=== PATIENT | female | born 1980 | race Caucasian/White ===

== ENCOUNTER 2019-01-02 16:17 | Inpatient (IN) | payer OTHER ==
[~2019-01-02] VITALS: Ht 165.1 cm; Wt 244.5 kg
[2019-01-02 16:18] VITALS: BP 123/61
[2019-01-02] MEDS ORDERED: WELCHOL 625 MG625 MG PO (16:23)
[2019-01-02 16:58] LABS: ABSOLUTE NEUTROPHILS 8.9 thou/uL (1.4-8.2); BASOPHILS 0.5 % (0.0-2.0); EOSINOPHILS 2.2 % (0.0-3.0); HEMATOCRIT 39.1 % (37.0-47.0); HEMOGLOBIN 12.5 gm/dL (12.0-15.0); LYMPHOCYTES 13.6 % (24.0-44.0); MCH 26.5 pg (26.0-34.0); MCV 82.9 fL (80.0-100.0); MONOCYTES 3.1 % (1.0-8.0); PLATELET COUNT 301 thou/uL (150-400); POLYS 80.6 % (36.0-66.0); RBC 4.72 mil/uL (4.20-5.00); RDW 15.2 % (10.5-14.5); WBC 11.1 thou/uL (4.0-11.0)
[2019-01-02 17:13] LABS: CALCIUM 9.2 mg/dL (8.5-10.1); CREATININE 0.9 mg/dL (0.6-1.0); MAGNESIUM 1.8 mg/dL (1.8-2.4); POTASSIUM 3.4 mmol/L (3.5-5.1)
[2019-01-02 20:34] LABS: ICTOTEST (BILI CONFIRMATORY) Negative (Negative); URINE BILIRUBIN NEGATIVE (Negative); URINE BLOOD TRACE (Negative); URINE CLARITY CLEAR; URINE COLOR YELLOW; URINE GLUCOSE-RANDOM* NEGATIVE (Negative); URINE KETONES NEGATIVE (Negative); URINE LEUKOCYTES-REFLEX 2+ (Negative); URINE NITRITE-REFLEX NEGATIVE (Negative); URINE PROTEIN (DIPSTICK) NEGATIVE (Negative); URINE UROBILINOGEN 0.2 E.U./dl (0.2-1.0)
[2019-01-02 20:46] LABS: CASTS None Seen /LPF (None Seen); CRYSTALS None Seen /LPF (None Seen); SQUAMOUS 4-10 Moderate /LPF (0-3)
[2019-01-02 20:47] LABS: BACTERIA-REFLEX 1-9 Few /HPF (None Seen); URINE RBC 0-2 Rare /HPF (0-2)
[2019-01-02 21:01] LABS: AMP/METHAMP Negative (Negative); BARBITURATES Negative (Negative); BENZODIAZEPINES Negative (Negative); COCAINE Negative (Negative); METHADONE Negative (Negative); OPIATES Negative (Negative); PCP Negative (Negative)
[2019-01-02 21:23] VITALS: BP 123/61
[2019-01-02 23:18] VITALS: BP 110/64
--- NOTE | 2019-01-02 23:36 | NUR ---
SPENT TWO AND HALF HOURS CLEANING PT AND ALL HER FOLDS, APPLYING NYSTATIN, BARRIER CREAM AND INSTA DRY
[2019-01-02 23:39] VITALS: BP 135/72
[2019-01-03 03:00] VITALS: BP 124/74
[2019-01-03 05:27] LABS: HEMATOCRIT 41.6 % (37.0-47.0); MCHC 31.1 g/dL (28.0-37.0); MCV 83.4 fL (80.0-100.0); RBC 4.99 mil/uL (4.20-5.00); RDW 15.4 % (10.5-14.5); WBC 12.1 thou/uL (4.0-11.0)
[2019-01-03 05:30] LABS: CALCIUM 8.7 mg/dL (8.5-10.1); POTASSIUM 3.1 mmol/L (3.5-5.1)
[2019-01-03] MEDS ORDERED: WELCHOL 625 MG625 MG PO (06:08)
--- NOTE | 2019-01-03 06:26 | NUR ---
ADMIT PT ADMITTED WITH SELF CARE DEFICIT, UTI AND MORBID OBESITY. HOME WITH CAREGIVERS. PT IS NOT SATISFIED WITH CARE COMPANY STATED ONE CAREGIVER SHOWED UP DRUNK, AND NONE HAS SHOWN UP TO PROVIDE CARE SINCE THE PREVIOUS SUNDAY. sHE STATED SHE HAS BEEN BED BOUND FOR 2 YEARS AND WAS INCONTINENT OF BOWELAND BLADDER AND HAD BEEN SITTING IN HER OWN EXCREMENT SINCE SUNDAY. VSS, ORIENTED TO ROOM CALL LIGHT AND PLAN OF CARE. PERIAREA RED EXCORIATED WITH 2 SMALL OPEN AREAS NOTED PICTURES TAKEN AND BARRIER CREAM APPLIED. PT IS ON A BARIATRIC LOW AIRLOSS MATTRESS. PT IS ABLE TO ASSIST IN REPOSITIONING SELF BUT UNABLE TO ROOL OVER DUE TO HER GIRTH. SHE RAISED HER LEGS UP OVER HER HEAD IN THE [place]G POSITION TO ALLOW FOR SKIN ASSESSMENT ON HER BUTTOCKS SACRUM AND PERIAREA. REFUSED IV START. CECILIA ALMANZA IN TO EVALUATE PT AND DISCUSS POC. HOME MED LABLED PLACED IN PHARMACY BAG AND SENT TO PHARMACY FOR STORAGE. FEMALE EXTERNAL CATHETER PLACED WORKING VERY WELL.
[2019-01-03 08:03] VITALS: BP 109/63
--- NOTE | 2019-01-03 12:10 | NUR ---
DISCHARGE PLANNING. PATIENT IS READY FOR DISCHARGE TODAY. POST ACUTE RECOMMENDED. PATIENT IS AGREEABLE TO [facility] AT DISCHARGE. HAS BEEN IN THE PAST AND WOULD LIKE TO RETURN. PATIENT REFERRAL FAXED TO [facility]. CALL PLACED TO COLBY TO NOTIFY. COLBY TO REVIEW AND WILL NOTIFY CM. FOLLOWING.
--- NOTE | 2019-01-03 13:46 | NUR ---
PT ADMITTED RELATED TO UTI SELF CARE DEFICIT. CM REVIEWED CHART AND SPOKE WITH CARE TEAM. CM MET WITH PT AT BEDSIDE THIS DAY, NATALEE SCOTT WITH APS VISITED WITH CM AND PT. NATALEE IS WORKING TO ASSIST PT WITH RESOURCES AND SUITABLE DC ARRANGEMENTS. PT INDICATED SHE LIVES ALONE IN AN APARTMENT WITH NO STEPS TO ENTER AND NO STEPS INSIDE WITH HER CAT. CAT IS BEING LOOKED AFTER BY PT'S TOOL MAKER KIA. PT HAD BEEN GETTING HCBS SERVICES THROUGH [facility] 7 DAYS A WEEK FOR 3-3.5HRS. PT INDICATED SHE HAD AN OLD HOSPITAL BE WITH A MATTRESS THAT WAS DESTROYED BY EMS WHEN THEY CAME TO TAKE HER TO HOSPITAL. SHE INDICATED SHE HAD ORIGINALLY GOTTEN BED THROUGH [employer] BUT THAT [employer] HAD DONE WORK ON IT IN THE PAST WHICH SHE IS IN COLLECTIONS FOR $2,000. SHE ALSO HAS AN OLD WALKER WELL. PT INDICATED HE CAREGIVER HADN'T COME SINCE SUNDAY. NATALEE AND PT WERE AWARE THAT [facility] HAD ISSUES PT A 21 DAY NOTICE OF STOPPING SERVICES. PT INDICATED SHE WANTED ANOTHER PROVIDER AND THAT SHE IS WORKING TO [employer]. PT INDICATED SHE WAS AGREEABLE WITH REFERRAL BEING SENT TO [facility]. IT WAS SENT AND THEY INDICATED THAT THEY HAD TRIED ADMITTING PT IN THE PAST BUT THAT SHE DOESN'T FIT IN THEIR ELEVATORS. SENT REFERAL TO [facility] AND THEY INDICATED THE PT NEEDS TO BE ABLE TO STAND AND PIVOT HERSELF TO QUALIFY FOR ADMISSION. CHECKED WITH [facility] AND THEY ARE FULL. CM TO NOTIFY CARE TEAM. CM TO FOLLOW INDICATED WITH DC PLANNING.
--- NOTE | 2019-01-03 14:02 | NUR ---
WOUND CONSULT; THIS MORBIDLY OBESE WOJOSE'S SKIN WAS ASSESED. IT SEEMS LIKE 70% OF HER BODY WEIGHT IS ON THE LOWER BODY. THE OVERALL SKIN IS REMARKABLY GOOD. SHE IS INVOLVED AND DRIVES HER PERSONAL CARE WHICH IS MOST HELPFUL. THERE ARE MANY SKIN FOLDS AND SHE ONLY HAD ONE SMALL SKIN TEAR. NO S/S OF INFECTION WAS NOTED. RECOMMENDATIONS; CLEANSE WITH NS OR WOUND CLEANSER APPLY A BOARDERED FOAM TO THE PANNOUS DAILY/PRN STAFF PRESENT
--- NOTE | 2019-01-03 14:30 | NUR ---
Nutrition: RD received consult related to obesity. Pt reported weight as 700# which equates to a BMI of 136, extreme class 3 obesity. Lives at home with 24 hr caregivers and per chart review they did not show up for several days. Pt unable to care for self, bedbound x 2 yrs. Eating well, observed 90% of lunch consumed. Heart healthy diet. Hx of lymphedema. Wound risk indicated is pannus abrasions, yeast to skin folds. Pt voiced no needs/questions for RD at time of visit. Planning transfer to rehab or SNF facility. Suggest consideration of surgery consult for bariatric surgery consideration.
--- NOTE | 2019-01-03 16:17 | NUR ---
Received awake on bed. On room air. Vital signs stable. No IV noted- pt refused from ER and in the harkins- Dr Estrada informed this AM as well. Assisted in ADLs. Pt refused her oral antibiotics and Enoxaparin injection- Dr Estrada informed and aware. On heart healthy diet- tolerating well; no nausea, no vomiting or abdominal pain noted. Pt requested if she can be on regular diet- Dr Estrada informed and agreed, order made. Pt unable to turn on her sides even if she is already on a bariatric bed. Pt seen by wound team today, assessed and interdry applied on her skin folds, deng care also done; with external female vera in place as well. Pt able to help with moving her and advising us how to do it. Nystatin powder applied to her skin folds as well. Pt requested to talk to IRENE, due to her landlord taking away her pets- IRENE Maddox informed and said she will see patient shortly- pt informed and updated. Vital signs stable. No complaints of pain. Kept comfortable.
[2019-01-03 17:51] VITALS: BP 112/54
[2019-01-03 21:27] VITALS: BP 101/64
[2019-01-04 05:39] LABS: HEMATOCRIT 36.8 % (37.0-47.0); HEMOGLOBIN 11.4 gm/dL (12.0-15.0); MCHC 30.9 g/dL (28.0-37.0); MCV 84.1 fL (80.0-100.0); RBC 4.38 mil/uL (4.20-5.00); RDW 15.3 % (10.5-14.5); WBC 10.3 thou/uL (4.0-11.0)
[2019-01-04 05:45] LABS: CALCIUM 8.6 mg/dL (8.5-10.1); POTASSIUM 3.4 mmol/L (3.5-5.1)
--- NOTE | 2019-01-04 08:10 | NUR ---
PROGRESS PT A/O X4 DENIES PAIN REPOSITIONS SELF IN BED VSS, CONTINUE TO MONITOR.
[2019-01-04 08:25] VITALS: BP 105/62
[2019-01-04 15:43] VITALS: BP 140/98
--- NOTE | 2019-01-04 18:12 | NUR ---
Received awake on bed. On room air. Vital signs stable. Pt still refusing IV insertion, oral antibiotics and enoxaparin- Dr Estrada informed and aware- did not discontinue medication but to keep offering to patient and just to chart if pt refuses. Maintained on isolation due to history of C.diff. With exteranal vera in place- output measured and recorded accordingly. Assisted in ADLs. On regular diet- tolerating well; no nausea, no vomiting and abdominal pain. On bariatric bed. Pt seen by Dr Estrada. OT- Lymphedema team consult placed a/w to see patient. With diuretics ordered but as per Dr Estrada to put in vera catheter prior to giving diuretics first- Charge nurse able to place vera to patient, cleaned her up and changed linen as well. Nystatin powder applied as precribed and interdry placed on her skin folds as well. Pt complained that she was very uncomfortable with the vera the she has and requested to have it removed HARJEET- explained to her that it is flushing well but she still want it removed- Charge nurse even talked to the patient re: Catheter- but still want it off- Vera catheter removed as per pt's request. Able to have a bowel movement. External vera placed. Vital signs stable the whole shift.
[2019-01-04 20:21] VITALS: BP 113/66
[2019-01-04] MEDS ORDERED: LEVO-T100 MCG PO (23:54)
[2019-01-04] MEDS ORDERED: SPIRONOLACTONE25 M1 PO (23:56)
[2019-01-04] MEDS ORDERED: VITAMIN B-125000 MCG PO (23:58)
[2019-01-04] MEDS ORDERED: POTASSIUM CHLO10 MEQ PO (23:58)
[2019-01-04] MEDS ORDERED: VITAMIN D250000 UNIT (23:59)
[2019-01-05 05:01] LABS: HEMATOCRIT 36.6 % (37.0-47.0); HEMOGLOBIN 11.5 gm/dL (12.0-15.0); MCH 26.4 pg (26.0-34.0); MCHC 31.5 g/dL (28.0-37.0); MCV 83.9 fL (80.0-100.0); RBC 4.36 mil/uL (4.20-5.00); RDW 15.2 % (10.5-14.5)
[2019-01-05 05:15] LABS: CALCIUM 8.8 mg/dL (8.5-10.1); POTASSIUM 3.1 mmol/L (3.5-5.1)
[2019-01-05 08:38] VITALS: BP 121/76
--- NOTE | 2019-01-05 09:00 | NUR ---
PT LYING IN BED. PT HAS SPECIAL BIG BOY BED WITH TRAPEZE. PT STATED SHE HAS PAIN THAT IS INTERNAL UNDER THE LYMPHEDEMA TO LEFT HIP. PT STATED THAT SHE DOESN'T LIKE THE NUMBER SCALE FOR PAIN. PT NOT COMPLIANT WITH TAKING CERTAIN MEDS SUCH ANTIBIOTIC AND LOVENOX. PT STATED SHE ISN'T ON LOVENOX AT HOME. PT STATED SHE BRUISES EASILY ALSO. PT STATED SHE IS HOMELESS NOW DUE TO GETTING EVICTED FROM APT AND SOMEONE TOOK HER CAT WHICH IS HER BABY. PT STATED AT HOME HER CAREGIVERS ARE ONE REASON WHY SHE HER LYMPHEDEMA IS WORSE DUE TO NOT HAVING LEGS WRAPPED AND ALSO SHE HAD DIARRHEA AT HOME AND SAT IN IT. PT STATED THAT SHE DIDN'T TAKE HER DIURETIC DUE TO NOT HAVING A MORAN CATH. SHE REALLY LIKES THE FEMALE SUCTION CATH. PT STATED SHE WALKED IN , NOT SINCE. PT HAS NO FAMILY SUPPORT, MOTHER IN HER 40'S FROM [place], FATHER TOO OLD. PT ABLE TO ASSIST WITH TURNING AND PERINIUM CARE. WICK AWAY IS USED IN THE CREASES OF SKIN.
--- NOTE | 2019-01-05 13:49 | NUR ---
ADM KDUR 40MEQ AND MAG 400MG PT REFUSING LAB DRAW IN 4 HOURS. PT ACCEPTED THE AM DRAW.
[2019-01-05 19:41] VITALS: BP 110/56
--- NOTE | 2019-01-06 04:09 | NUR ---
PT CARE ASSUMED AT 1900 .PT IS A/O X4.PT IS BEDBOUND AND 3 TO 4 PERSONS ASSIST.PT DENIED ALL BEDTIME MEDICATION .PT WAS CHANGED DURING SHIFT .PT HAD AN EXTERNAL FEMALE CATHETER IN PLACE.CONTINUE TO MONITOR
[2019-01-06 05:06] LABS: HEMATOCRIT 37.4 % (37.0-47.0); HEMOGLOBIN 11.7 gm/dL (12.0-15.0); MCHC 31.4 g/dL (28.0-37.0); RBC 4.5 mil/uL (4.20-5.00); RDW 15.5 % (10.5-14.5); WBC 10.6 thou/uL (4.0-11.0)
[2019-01-06 05:17] LABS: CALCIUM 8.5 mg/dL (8.5-10.1); POTASSIUM 3.2 mmol/L (3.5-5.1)
[2019-01-06 08:00] VITALS: BP 113/76
--- NOTE | 2019-01-06 13:30 | NUR ---
LORENZO reviewed chart and spoke with nursing and attending physician. LORENZO met with pt at bedside to discuss discharge plan. [facility] has an open case due to pt's living condition. Pt states that she was told over the weekend via text that her landlord will not renew her lease. Her current lease expires at the end of February 2019. Pt is agreeable with post-acute placement. SW discussed options. No preference voiced of location. Pt states she does not have any family in the [place] and is open to going anywhere in the [place] Pt's father lives in [place]. Pt does not have any other family or friends in the area. Pt states that she has been to many hospitals and post-acute facilities ([facility], [facility], [facility], [facility], [facility], and [facility]). Pt also requests to speak with Bandar Kowalski at [facility]. Lengthy discussion with pt regarding discharge plan and eventual discharge plan. LORENZO contacted Tonio her and Maggie at [facility] [place] who state they are both able to accommodate bariatric pt. technical planner to fax referrals to [facility] and [facility] [place] [facility]. LORENZO left voice message for Bandar at [facility] to follow up with pt. LORENZO is following to assist as needed with discharge planning.
--- NOTE | 2019-01-06 17:12 | NUR ---
Assumed patient care at 0715. Patient's vital signs have been stable. She picks and chooses which medications she wants to take and is non-compliant with some of them. Patient has been taking her diuretics and has been urinating in large amounts. She uses a external catheter and the chamber fills up quickly (every 35-45minutes). She has required the assistance of four Security Officers and 3 nursing staff members to change and clean her up x's 1 during this shift for urinary incontinence. POC followed. Will continue to monitor.
[2019-01-06 19:17] VITALS: BP 100/51
--- NOTE | 2019-01-07 04:02 | NUR ---
Assumed pt care at 1900. A/OX4, VSS. Denies pain on assessment,pt declined HS meds. Also declined need for the nystatin powder under pannus stating she doesn't need it. Female external cath in place and patent. Denies any needs at this time, will continue to monitor pt.
[2019-01-07 08:09] VITALS: BP 109/64
[2019-01-07 10:51] LABS: CALCIUM 8.9 mg/dL (8.5-10.1); CREATININE 1.1 mg/dL (0.6-1.0)
[2019-01-07 14:11] VITALS: BP 112/60
--- NOTE | 2019-01-07 16:23 | NUR ---
REFERRALS SENT TO [facility], AND [facility]. PT INDICATED SHE WOULDN'T GO TO [facility] SHE HAS BEEN THERE BEFORE AND THEY INDICATED THEY CAN'T ACCEPT THIS TIME. SHE IS AGREEABLE WITH LOO[facility] INTO [facility] AND [facility]. PT WOULD LIKE CM TO REACH OUT TO [facility] WORK[facility] AND SHE INDICATED SHE HASN'T HEARD FROM HER SINCE DAY OF ADMIT. PT EXPRESSED CONCERN ABOUT HER CAT ELMER HE IS APPARENTLY STILL AT HER APARTMENT BEING LOOKED AFTER BY HER NEIGHBOR WHO SHE IS SOMEWHAT DISTRUSTING OF. SHE ASKED IF THERE WERE ANY VOLUNTEERS HERE AT HOSPITAL WHO CAN LOOK AFTER HER CAT. CM TO INQUIRE AND FOLLOW UP WITH PT.
--- NOTE | 2019-01-07 18:10 | NUR ---
Received awake on bed. Due medications given as prescribed. A+Ox4. On room air. Vital signs stable. Pt still refusing to take her antibiotics and levonox, IV insertion- Dr Estrada aware. With external vera in place- output measured and recorded accordingly. Maintained on isolation due to history of C.diff. On regular diet- tolerating well; no nausea, no vomiting and no abdominal pain noted. Pt said that her pet cat Americo is left at her apartment alone and asked me if I can take care of her cat, informed pt that I am allergic to cats and I cannot take care of her cat but I told her that I will let CM know. Checked pt's K level, with standing order for K correction- given as prescribed, repeat K ordered at 1900, Mg included on blood draw as well. Assisted in ADLs. IRENE Maddox able to talk to pt. Vital signs stable. Pt seen by Infectious Disease nurse Ilene- pt not able to pass stool sample, thus removed from Isolation.
[2019-01-07 19:36] LABS: MAGNESIUM 1.6 mg/dL (1.8-2.4); POTASSIUM 3.2 mmol/L (3.5-5.1)
[2019-01-07 21:05] VITALS: BP 112/65
--- NOTE | 2019-01-08 02:38 | NUR ---
ASSUMED CARE OF PT AT 1900HRS. PT IS AOX4 AND LETS NEEDS BE KNOWN. PT REFUSING SOME PO MEDS THIS SHIFT. EXTERNAL MORAN REPLACED AND IS FUNCTIONAL. NO IV IN PT PT HAS BEEN REFUSING IV INSERSION. PT WAS ABLE TO GET COMFORTABLE AND SLEEP PART OF THE SHIFT. VSS AND NO S/S OF ACUTEDISTRESS. WILL CONTINUE TO MONITOR.
[2019-01-08 05:29] LABS: HEMATOCRIT 37.1 % (37.0-47.0); HEMOGLOBIN 11.8 gm/dL (12.0-15.0); MCH 26.5 pg (26.0-34.0); MCHC 31.8 g/dL (28.0-37.0); MCV 83.5 fL (80.0-100.0); RBC 4.44 mil/uL (4.20-5.00); RDW 15.4 % (10.5-14.5); WBC 10.6 thou/uL (4.0-11.0)
[2019-01-08 05:45] LABS: CALCIUM 8.9 mg/dL (8.5-10.1); MAGNESIUM 1.5 mg/dL (1.8-2.4); POTASSIUM 3.9 mmol/L (3.5-5.1)
[2019-01-08 07:48] VITALS: BP 112/53
--- NOTE | 2019-01-08 14:05 | NUR ---
Received awake on bed. Due medications given as prescribed, able to swallow meds w/o difficulty. A+Ox4. On room air. Assisted in ADLs. Pt still refusing antibiotics, IV insertion and Enoxaparin. With external vera in place- output measured and recorded accordingly. Vital signs stable. Pt had a bowel movement today. Dressing changed, photo taken. Pt seen by Dr Estrada- daily MG and Potassium tablets ordered- given as prescribed. Pt requested if there is a bariatric bed worthy- US called CS to ask, waiting call back. Pt seen by lymphedema nurse today. On regular diet- tolerating well; no nausea, no vomiting and no abdominal pain noted.
[2019-01-08 14:19] LABS: CALCIUM 9.3 mg/dL (8.5-10.1); CREATININE 1.2 mg/dL (0.6-1.0); POTASSIUM 3.1 mmol/L (3.5-5.1)
--- NOTE | 2019-01-08 15:15 | NUR ---
AWAITING RESPONSE FROM [facility] AND [facility]. IRENE SPOKE WITH JOCELYN JULIAN FOR [facility] AND DC SWATCH PASTER FAXED A REFERRAL THERE. CM ALSO ASKED THAT REFERRAL BE SENT TO [facility] IN [place] FOR [facility]VIEW. CM CALLED AND FOLLOWED UP WITH NATALEE SCOTT [facility] WORKER AND SHE INDICATED THAT SHE ANTICPATED VISITING WITH PT SUNDAY OR SUNDAY. CM NOTIFIED PT OF ALL OF THE ABOVE. 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 PT IS ALSO AWARE. CM TO FOLLOW INDICATED WITH DC PLANNING.
[2019-01-08 15:55] VITALS: BP 105/64
[2019-01-08 19:26] VITALS: BP 96/54
[2019-01-09 05:17] LABS: HEMATOCRIT 36.4 % (37.0-47.0); HEMOGLOBIN 11.5 gm/dL (12.0-15.0); MCH 26.2 pg (26.0-34.0); MCHC 31.5 g/dL (28.0-37.0); RBC 4.39 mil/uL (4.20-5.00); RDW 15.2 % (10.5-14.5); WBC 9.6 thou/uL (4.0-11.0)
[2019-01-09 05:34] LABS: CALCIUM 8.9 mg/dL (8.5-10.1); CREATININE 1.1 mg/dL (0.6-1.0); POTASSIUM 3.4 mmol/L (3.5-5.1)
--- NOTE | 2019-01-09 05:36 | NUR ---
assessments completed. pt a&ox4. pt refused all of her night time meds. pt stated 'she has explained to everyone why she does't want to take the meds she is refusing'. pt had a very restful night with little interruptions. v/s stable. no s/s of distress. will cont to monitor
[2019-01-09 07:46] VITALS: BP 123/45
[2019-01-09 14:35] VITALS: BP 114/62
--- NOTE | 2019-01-09 15:00 | NUR ---
A/O, calm and cooperative; deneid pain, no n/v; vss, afebrile. patient had BM, patient was cleaned with help from security guards. bed rest, working on her personal computer. Will keep monitoring.
[2019-01-09 19:59] VITALS: BP 120/72
--- NOTE | 2019-01-10 03:35 | NUR ---
Assumed care of pt @1915. pt a&ox4. pt had a large bm at the start of the shift, pt was cleaned and repositioned by staff. pt refused night time medications. nystatin powder applied to folds. pt denies pain. denies n/v. v/s stable. no s/s of distress. will cont monitor
[2019-01-10 08:01] VITALS: BP 119/62
--- NOTE | 2019-01-10 09:53 | NUR ---
Following for d/c planning needs. Spoke with school admissions representative at [employer]. Their cortney lift does not accommodate pt's weight. Called [facility] and left message. Will remain available to assist as needed.
--- NOTE | 2019-01-10 15:53 | NUR ---
RESUMED CARE AT 0700. PT IS AWAKE AND SITTING UP IN BED. PT REPORTED AN INCONTINENT EPISODE. PERICARE WAS PROVIDED WITH X4 ASSIST. PT COMPLAINED OF SKIN IRRITATION HOWEVER SHE REFUSED THE NYSTATIN POWDER OR BARRIER CREAM OINTMENT. PT REFUSED MORNING MEDICATIONS EXCEPT FOR MAGNESIUM, POTASSIUM, AND SPIRALACTONE. STATING "I HAVE TO GET MY MEDICATIONS RIGHT SO I CAN STOP POOPING SO MUCH." PT HAS HAD SEVERAL INCONTINENT EPISODES OF STOOL REQUIRING X4 TOTAL ASSISTANCE. PT IS CURRENTLY SITTING IN BED. CALL LIGHT IS WITHIN REACH. WILL CONTINUE TO MONITOR.
[2019-01-10 19:40] VITALS: BP 114/61
--- NOTE | 2019-01-11 03:48 | NUR ---
ASSUMED CARE FROM DAY SHIFT PT PT SITTING UP ON BED ON LAPTOP , REFUSING HS MEDICATON AND NYSTIN FOR SKIN FOLDS. ATTEMPETD TO DISCUSS PLAN OF CARE PT STATES " DONT WANT TO HEAR IT " FEMALE EXTERNAL CATHETER IN PLACE WITH CLEAR YELLOW URINE. PT RESTED WELL THROGUHOUT HOURLY ROUNDS .WILL REPORT CHANGES JOSHI ABNORMAL FINDINS.
[2019-01-11 04:59] LABS: ALBUMIN 2.5 g/dL (3.4-5.0); CALCIUM 8.7 mg/dL (8.5-10.1); PHOSPHORUS 4.1 mg/dL (2.5-4.9); POTASSIUM 3.3 mmol/L (3.5-5.1)
[2019-01-11 07:50] VITALS: BP 107/55
[2019-01-11 16:56] VITALS: BP 114/66
--- NOTE | 2019-01-11 18:28 | NUR ---
A/O, cooperative but refused some medication (Antibiotics); denied pain; had one BM, moderated volume; formed. vss, afebrile; lab reviewed. Will keep monitoring.
[2019-01-11 19:38] VITALS: BP 106/61
--- NOTE | 2019-01-12 04:43 | NUR ---
ASSUMED CARE OF PT AT 1900HRS. PT IS AOX4 AND LETS NEEDS BE KNOWN. PT IS COOPERATIVE BUT DENIED MOST OF HER MEDS WELL NYSTATIN POWDER. EXTERNAL FEMALE CATH IN PLACE AND IS DRAINING CLEAR, YELLOW URINE. PT WAS ABLE TO SLEEP PART OF THE SHIFT. VSS AND NO S/S OF ACUTE DISTRESS. WILL CONTINUE TO MONITOR.
[2019-01-12 05:29] LABS: ABSOLUTE NEUTROPHILS 8.3 thou/uL (1.4-8.2); BASOPHILS 0.4 % (0.0-2.0); HEMATOCRIT 36.8 % (37.0-47.0); HEMOGLOBIN 11.5 gm/dL (12.0-15.0); LYMPHOCYTES 16.9 % (24.0-44.0); MCHC 31.2 g/dL (28.0-37.0); MCV 83.4 fL (80.0-100.0); MONOCYTES 4.3 % (1.0-8.0); PLATELET COUNT 294 thou/uL (150-400); POLYS 74.4 % (36.0-66.0); RBC 4.42 mil/uL (4.20-5.00); RDW 15.4 % (10.5-14.5); WBC 11.1 thou/uL (4.0-11.0)
[2019-01-12 05:58] LABS: URINE BILIRUBIN NEGATIVE (Negative); URINE BLOOD NEGATIVE (Negative); URINE CLARITY CLEAR; URINE COLOR YELLOW; URINE GLUCOSE-RANDOM* NEGATIVE (Negative); URINE KETONES NEGATIVE (Negative); URINE PROTEIN (DIPSTICK) NEGATIVE (Negative); URINE SPECIFIC GRAVITY 1.015 (1.005-1.035); URINE UROBILINOGEN 0.2 E.U./dl (0.2-1.0)
[2019-01-12 06:00] LABS: URINE LEUKOCYTES-REFLEX 3+ (Negative); URINE NITRITE-REFLEX POSITIVE (Negative)
[2019-01-12 06:13] LABS: CALCIUM 9.4 mg/dL (8.5-10.1); CREATININE 1.1 mg/dL (0.6-1.0); MAGNESIUM 1.6 mg/dL (1.8-2.4); PHOSPHORUS 3.8 mg/dL (2.5-4.9); POTASSIUM 3.4 mmol/L (3.5-5.1)
[2019-01-12 06:23] LABS: TSH 6.759 uIU/mL (0.358-3.740)
[2019-01-12 06:31] LABS: SQUAMOUS 4-10 Moderate /LPF (0-3)
[2019-01-12 06:32] LABS: CASTS None Seen /LPF (None Seen); URINE WBC-REFLEX >25 Many /HPF (0-5)
[2019-01-12 06:33] LABS: BACTERIA-REFLEX >30 Many /HPF (None Seen); CRYSTALS None Seen /LPF (None Seen); URINE RBC None Seen /HPF (0-2)
[2019-01-12 07:51] VITALS: BP 118/56
[2019-01-12 09:00] VITALS: BP 118/56
--- NOTE | 2019-01-12 09:00 | NUR ---
PT AWAKE AT THIS TIME. PT ROOM IS DARK AND DOENS'T WANT WINDOW BLIND OPEN. PT STATED SHE IS DEPRESSED DUE TO NOT BEING ABLE TO GO BACK TO HER PLACE, HER CAT ELMER IS THERE AND NEIGHBOR FRIEND KELSEY IS HELPING CARE FOR CAT. PT VERY TALKATIVE WITH STAFF. PT WANTS TO BE LISTENED TOO. PT STATED THAT SHE WILL SAY HOW TO CARE FOR HER, PT STATED THAT SHE HAS HEMORROIDS AND SOME PEOPLE ARE TOO ROUGH. PT USING EXTERNAL CATH TO VOID. PT STATED THAT SHE DIDN'T WANT TO WORK WITH THERAPY UNTIL HER WEIGHT IS DOWN TO 650 PDS. PT HAS SOME REDDNESS TO LEFT HIP AREA. PT STATED SHE HAS DIFFERENT EATING HABITS THAN HERE. PT STATED TIMES ARE DIFFERENT AT HOME. PT SLEEPS IN AM AND WHEN SHE DOES EAT IT IS ONLY A FEW BITES AT A TIME.
--- NOTE | 2019-01-12 11:59 | NUR ---
PT REFUSING ANTIBIOTICS UNLESS ITS BACTRIUM. PT TOLD DR. BRYAN THAT SHE WILL NOT TAKE ANY PO OR IV ANTIBIOTICS UNLESS SHE HAS SYMPTOMS.
[2019-01-12 15:27] VITALS: BP 119/64
--- NOTE | 2019-01-12 18:22 | NUR ---
PT HAS HAD X3 STOOLS TODAY. PT STATED IT IS FROM HER GALLBLADDER. PT STATED THAT A SURGEON WOULDN'T EVEN TOUCH HER AT 500 PDS. PT STATED THE COLESTED HELPS WITH THICKEN UP STOOL, THEN SHE STATED IT WOULD BE HARDER TO HAVE BM. PT SHAVED PUBIC AREA AFTER SECOND STOOL. PT NEEDED ASSISTANCE X3 NURSE AND SECURITY HELPED X1 TODAY FOR CARES.
[2019-01-12 19:15] VITALS: BP 103/60
--- NOTE | 2019-01-13 07:47 | NUR ---
progress pt a/o x4 vss, denies pain. external cath in place draining large amounts of urine. able to assist in repositioning self. refused all meds except levothyroxine plan is to continue to find appropriate level of care.
[2019-01-13 08:00] VITALS: BP 116/62
--- NOTE | 2019-01-13 11:54 | NUR ---
PT DICTATING CARE. REFUSING CERTAIN MEDICATIONS. REFUSING FOR NURSING STAFF TO TOUCH SKIN OR DO ANY TREATMENTS. THIS WAS VERBALIZED IN FRONT OF PHYSICIAN. PT NEEDING PLACEMENT OUTSIDE OF HOSPITAL. CASE MANAGEMENT ON BOARD AND WORKING ON THIS. CONSULT FOR ENDOCRINE TO HELP WITH MANAGEMENT OF SYNTHROID. REPORT GIVEN TO LACEY SIMON WHO WILL BE TAKING OVER CARE OF THIS PATIENT.
[2019-01-13 15:00] VITALS: BP 112/54
--- NOTE | 2019-01-13 15:24 | NUR ---
Nutrition: Chart reviewed. Pt not seen due to behaviors. EMR states pt dictating care, refusing medications, refusing staff care. On a regular diet. Hx bedbound x 2 yrs. Weight possibly down 37# if wt's recorded are accurate. From 719# on 01/05 to 682# per 01/12? Meal averages also down, likely in part due to behaviors. Pt was averaging close to 90% of meals 01/06 - 01/08, but meal average down to 30% from 01/10 - 01/12. None recorded today for review. Will defer added interventions this date, but if low po trends continue or if skin/wound issues develop, recommend adding Beneprotein to mealtime regimen or Ensure MAX to minimize kcals, but optimize protein. Will follow for po trends. Low nutrition risk for now.
--- NOTE | 2019-01-13 16:07 | NUR ---
ASSUMED CARE THIS AM, NO COMPLAINTS OF PAIN OR DISCOMFORT. ORIENTED TIMES 4. NOT AMBULATORY SECONDARY TO OBESITY. REFUSES IV PLACEMENT AND SOME MEDICATIONS. WAITING FOR PLACEMENT TO SKILLED FACILIY IF POSSIBLE.
--- NOTE | 2019-01-13 16:09 | NUR ---
IRENE HAD FOLLOWED UP WITH [facility] ABOUT REFERRAL SENT 01/08 AND BEBE WITH [facility]. SHE INDIATED THEY HADN'T RECIEVED REFERRAL. CM ASKED THAT DC UNDERGROUND MINER SEND IT AGAIN. CM SPOKE WITH [facility] DIANA ALBRIGHT AND PROVIDE CM PCI SECURITY CONSULTANT WITH HER NUMBER TO DISCUSS CASE. CM CALLED [facility] TO ASK ABOUT BED/MATTRESS AND WASN'T ABLE TO REACH ANYONE THERE. CM CALLED [facility] AND THEIR PCI SECURITY CONSULTANT WILL RANDOLPH WILL BE BACK IN THE OFFICE TOMORROW. CM TO CALL BACK REGARDING MATTRESS TOMORROW. CM TO FOLLOW INIDCATED WITH DC PLANNING.
--- NOTE | 2019-01-13 16:09 | NUR ---
ASSUMED CARE THIS AM, SI PATIENT WITH 1 TO 1 OBSERVATION. STABLE JUST WAITING ON PLACEMENT.
--- NOTE | 2019-01-13 17:12 | HC ---
[facility] [place] [address] CONSULTATION Name: ADALBERTO SAINI Room #: 459-P ADM IN M.R.#: [id number] Admission: 01/02/19 Attend Phys: Natan Estrada MD Discharge: Date of : 76 Report #: [id number] THIS REPORT FOR: //name// CC: Stephanie Flores DATE OF SERVICE: 01/13/2019 ENDOCRINE CONSULTATION NOTE REASON FOR CONSULTATION: Hypothyroidism. HISTORY OF PRESENT ILLNESS: This is a 40-year-old female patient whose medical background is significant for multiple medical issues including longstanding hypothyroidism, depression, anxiety, lymphedema, recurrent C. diff and morbid obesity. The patient presented to [facility] primarily due to the issue of lacking caregivers' help. She was unable to care for herself and was admitted for further care and monitoring. The patient was diagnosed with hypothyroidism over 10 years ago and has been on levothyroxine therapy for that duration. She notes that her levothyroxine dosage had been revised up from 150 to 175 and then to 200 mcg daily over a year ago. However, the patient notes that have been major interruptions in the intake of levothyroxine, especially over the past few months that she blames primarily due to caregivers not doing their job. She initially told me that she had not taken any at all over the past 2 months and then reiterated that she had taken it for a week or two. She is aware of the method of levothyroxine intake, being on an empty stomach in the morning to space it out from food by 30-60 minutes. The patient is rather frustrated about her worsening hair loss, fatigue, tiredness and skin dryness. REVIEW OF SYSTEMS: CONSTITUTIONAL: Fatigue, tiredness, intermittent issues with chills. No weight changes. HEENT: Negative for sore throat, sinus pain, ear drainage. PULMONARY: Occasional shortness of breath. No cough or hemoptysis. CARDIAC: No chest pain, palpitations, syncope. GASTROINTESTINAL: Recurrent bouts of C. diff, occasional issues with abdominal distention, abdominal discomfort. No nausea or vomiting. UROLOGY: Recurrent UTIs and urinary frequency. PSYCH: Depression, anxiety. Otherwise, review of systems noncontributory other than those mentioned in HPI. [address] [address] CONSULTATION Name: ADALBERTO SAINI Room #: [facility] ..#: [id number] Admission: 01/02/19 Attend Phys: Natan Estrada MD Discharge: Date of : 78 Report #: [id number] PAST MEDICAL HISTORY: 1. Hypothyroidism. 2. Depression. 3. Anxiety. 4. Morbid obesity. 5. Recurrent C. diff. 6. Lymphedema. 7. GERD. 8. Gallbladder stones. REPORTED MEDICATIONS: Synthroid 200 mcg daily. ALLERGIES: THE PATIENT IS ALLERGIC TO SEVERAL ANTIBIOTICS THAT SHE MENTIONS SULFA. SHE IS ALSO ALLERGIC TO ADHESIVE TAPE, CABBAGE AND ONIONS. FAMILY HISTORY: Noncontributory. SOCIAL HISTORY: The patient lives alone. She denies any active use of tobacco or alcohol. PHYSICAL EXAMINATION: GENERAL: female patient who is not in apparent distress. VITAL SIGNS: Blood pressure is 116/62 mmHg, heart rate is 96 beats per minute, respirations 16 per minute, temperature is 36.4 degrees. CONSTITUTIONAL: She is sitting up in bed comfortably, not in apparent pain or distress. HEENT: Anicteric sclerae. Intact extraocular motions. NECK: Supple, without JVD, carotid bruits or lymphadenopathy. I do not appreciate thyromegaly. CHEST: Noted for distant breath sounds, moderate air entry, scattered rales. HEART: Regular rate and rhythm without murmurs or gallops. ABDOMEN: Obese, but soft and lax, generalized guarding and tenderness due to ventral hernia. Active bowel sounds. EXTREMITIES: Lower extremity exam, lymphedematous changes. No skin breaks. NEUROLOGIC: Awake, alert and oriented to time, place and person. She moves all extremities spontaneously. PSYCHIATRIC: Flat mood and affect, clearly frustrated, but cooperative and interactive. LABORATORY RESULTS: Sodium 142, potassium 3.4, chloride 101, CO2 of 32, anion gap 9, BUN 10, creatinine 1.1, glucose 122, calcium 9.4, phosphorus 3.8, magnesium 1.6, albumin 2.5, EGFR 55. Free T4 of 1.2. Free T3 of 2.06. White blood count 11.1, hemoglobin 11.5, hematocrit 36.8, platelets 294. TSH 6.759. Vitamin B12 is 357. ASSESSMENT AND PLAN: Hypothyroidism. [address] [address] CONSULTATION Name: ADALBERTO SAINI Room #: 459-P [facility] IN [facility].#: [id number] Admission: 01/02/19 Attend Phys: Natan Estrada MD Discharge: Date of : 76 Report #: [id number] As noted above, the patient has a longstanding history of this issue and has been maintained on levothyroxine therapy for over 10 years. The current levothyroxine dose of 200 mcg daily had been in place for over a year. Following my discussions with the patient, it is clear that there have been significant interruptions in its intake, which initially I was told were near complete over the past 2 months. That said, when considering her current thyroid function indices, they convey an outlook of subclinical hypothyroidism, which implies that the patient needs or should need supposedly a fairly low dose of levothyroxine. When that logic was discussed with her, she seemed a bit frustrated and expressed that she was hoping for a higher dose of levothyroxine to help her hair loss. I counseled the patient extensively about the pathogenesis of hypothyroidism, the specifics of levothyroxine therapy, and the need to target and maintain a therapeutic level without over or under placing her. She seemed to understand this well. The patient reiterated that she believes she took levothyroxine at a dose of 200 mcg daily for 1-3 weeks over the past 2 months. That said, and in order to have more stability to her thyroid function indices, I propose that we maintain the current dose of levothyroxine 200 mcg daily with consistency, taken on an empty stomach in the morning and maintaining a 30-60 minute separation from food intake to optimize the absorption. Thyroid function followup studies need to be done 6-8 weeks out to better assess this dosage. The patient understood this approach well and agreed with these recommendations. Given this long-term outlook of followup, I recommend that we keep the current dose of 200 mcg daily and I will sign off with the recommendation for outpatient followup in 6-8 weeks. I certainly appreciate this consultation by Dr. Sterling. <ELECTRONICALLY SIGNED> By: Concha Contreras MD 01/13/19 1712 [id number] Concha Contreras MD /nt
[2019-01-13 19:28] VITALS: BP 116/60
--- NOTE | 2019-01-14 02:00 | NUR ---
PT AOX4. PT HAS NO REPORTS OF PAIN OR SOA. PT REPORTS CONCERN FOR FINDING PLACEMENT FOR HER CAT AND RELOCATING DUE TO INABILITY TO RENEW HOUSING LEASE. PT REPORTS HER CURRENT SUPPORT SYSTEM HER NEIGHBOR [place]EL[place]. PT REFUSED 2100 MEDICATIONS, REQUESTS TO ONLY RECEIVE MORNING SCHEDULED DOSE OF LEVOTHYROXINE. PROVIDED EDUCATION TO PT IN REGARDS TO THE RISKS OF NONCOMPLIANCE. PT RECEPTIVE TO TEACHING. ENCOURAGED PT TO NOTIFY STAFF FOR ALL CONCERNS. BED IN LOWEST POSITION, CALL LIGHT WITHIN REACH, BED ALARM ON. WILL CONTINUE TO MONITOR.
[2019-01-14 04:09] VITALS: BP 109/45
--- NOTE | 2019-01-14 04:39 | NUR ---
PT TEMPERATURE 99.2, PT OFFERED PRN TYLENOL, PT REFUSED. PT REQUESTS TO ONLY HAVE LEVOTHYROXINE FOR DISTILLATION OPERATOR MEDICATION, REFUSES TO TAKE OTHER SCHEDULED MEDICATION. WILL CONTINUE TO MONITOR.
[2019-01-14 07:52] VITALS: BP 111/64
--- NOTE | 2019-01-14 15:23 | NUR ---
NATALEE LOCK NUTRITION REPRESENTATIVE FOLLOWED UP WITH CM AND PT THIS DAY. SHE INDICATED THAT IT WOULD NOT BE A SAFE DISCHARGE FOR PT TO RETURN TO HER HOME. REFERRALS WERE SENT TO [facility] AND [facility]. BS CAN'T TAKE. CM HEARD BACK FROM [facility] AND THEY CAN'T ACCEPT EITHER. TREND IS THAT ACUTE REHABS WON'T EVEN LOOK AT REFERRAL UNLESS PT IS PARTICIPATING IN THERAPIES AND WOULD BE ABLE TO TOLERATE 3HRS PER DAY. CM CALLED [facility] IN [place] AND THEY AGAIN INDIATED THAT THOSE WOULD BE THERE CRITERIA TO EVEN CONSIDER ADMISSION. CM TO NOTIFY PT AND FOLLOW INDICATED WITH DC PLANNING.
[2019-01-14 19:28] VITALS: BP 115/67
--- NOTE | 2019-01-14 19:45 | NUR ---
A/O, calm and cooperative; vss, afebrile; waiting for placement; denied pain, no n/v, good appetite.
--- NOTE | 2019-01-15 03:53 | NUR ---
Pt. rested quietly during the night when checked on during frequent rounds. Incontinent of a loose stool at start of the shift. Guera care was given with max assist of 4 nursing staff members. Pt. refuses nystatin powder to her skin and some other meds. No c/o pain.
[2019-01-15 08:00] VITALS: BP 110/65
--- NOTE | 2019-01-15 13:47 | NUR ---
ASSUMED CARE AROUND 0700. AXOX3. REFUSED ALL PO ATB AND NYSTATIN. WOUND CARE SAW PT AT [facility]. INITIAL WOUND CARE RENDERED BY WOUND CARE [place]. NO S/S ACUTE DISTRESS NOTED OR REPORTED AT THIS TIME. WILL CONT TO MONITOR FOR ANY CHANGES IN CONDITION.
[2019-01-15 15:00] VITALS: BP 115/66
[2019-01-15 19:20] VITALS: BP 107/60
--- NOTE | 2019-01-16 03:39 | NUR ---
PT CARE ASSUMED AT 1900.PT IS A/O X4.PT REFUSED ALL BEDTIME MEDICATION AND WANTED JUST JUST HER THYROID MEDICATION IN THE MORNING.PT HAS AN EXTERNAL FEMALE CATHETER .PT IS AWAITING PLACEMENT.CONTINUE POC
[2019-01-16 08:35] VITALS: BP 114/61
[2019-01-16 15:09] VITALS: BP 120/60
--- NOTE | 2019-01-16 15:28 | NUR ---
Received awake on bed. Due medications given as prescribed, able to swallow meds w/o difficulty, still refusing antibiotics, nystatin powder and enoxaparin. A+O. Vital signs stable. On room air. Assisted in ADLs. Still refused to have IV access. Still a/w placement. With external female vera in place, draining well, output measured and recorded accordingly. Pt had a bowel movement today, deng care given.
--- NOTE | 2019-01-16 16:31 | NUR ---
PER PT'S REQUEST CM CALLED [facility] (SAID CAN'T ACCEPT), [facility] (SAID NO), AND [facility] NEVER HEARD BACK TO SEE IT ANY OF THEM COULD ACCEPT FOR SKILLED REHAB. CM CALLED AMARJIT ABOUT [facility]. WE WILL BE RENTING WALKER [employer]DEL [employer] 1000LBS FOR $3.50 PER DAY. THEY WILL DELIVER IT TOMORROW. REFERENCE NUMBER [id number]. CM TO FOLLOW INDICATED WITH DC PLANNING.
[2019-01-16 19:50] VITALS: BP 118/67
--- NOTE | 2019-01-17 04:00 | NUR ---
ASSUMED CARE OF PT AT 1900HRS. PT IS AOX4 AND LETS NEEDS BE KNOWN. ASSESSMENTS CHARTED. PT REFUSED MOST OF HER MEDICATIONS. PT DENIES PAIN, NAUSEA OR DISCOMFORT. PT WAS ABLE TOGET COMFORTABLE AND SLEEP PART OF THE SHIFT. VSS AND NO S/S OF ACUTE DISTRESS. WILL CONTINUE TO MONITOR.
[2019-01-17 08:20] VITALS: BP 110/63
[2019-01-17 15:54] VITALS: BP 119/68
[2019-01-17 20:04] VITALS: BP 107/58
--- NOTE | 2019-01-17 20:56 | NUR ---
ALERT AND ORIENTED X4-DENIES C.O PAIN-RESPIRATIONS EVEN AND REGULAR- EXTERNAL CATHETOR DRAINING LARGE AMOUNTS CLEAR YELLOW URINE-DID REFUSE APPLICATION OF NYSTATIN POWDER AND FLAGYL-ABDOMINLA AND PERINEAL FOLDS WELL FOLDS UNDER BREAST SLIGHTLY REDDENED BUT DRY-NO ODOR NOTED UPON ASSESSMENJT-NO OPEN AREAS NOTED OR REPORTED BY PT
--- NOTE | 2019-01-18 03:14 | NUR ---
ASSUMED CARE OF PT AT 1900HRS. PT IS AOX4 AND LETS NEEDS BE KNOWN. PT REFUSING MANY OF HER MEDICATION. PT REMOVED LIMPHEDEMA WRAP FROM RIGHT FOOT. PT HAS NO IV ACCESS AND MD IS AWARE. NO COMPLAINTS OF NAUSEA OR PAIN. PT WAS ABLE TO GET COMFORTABLE AND SLEEP PART OF THE SHIFT. VSS AND NO S/S OF ACUTE DISTRESS. WILL CONTINUE TO MONITOR.
[2019-01-18 07:40] VITALS: BP 119/57
[2019-01-18 15:12] VITALS: BP 111/63
[2019-01-18 19:48] VITALS: BP 117/61
--- NOTE | 2019-01-18 20:34 | NUR ---
PATIENT ALERT AND ORIENTED AND INDICATES SOMETIMES DOES NOT HAVE "FILTER". STATES CAN MAKE MALE NURSES BLUSH. PATIENT REFUSES SOME OF HER MEDS AND STATES SHE KNOWS WHAT HER BODY NEEDS. TWO BM'S TODAY. PATIENT IS OTHERWISE MOSTLY PLEASANT WITHOUT ANY COMPLAINTS.
--- NOTE | 2019-01-19 04:29 | NUR ---
ASSUMED CARE AROUND 191. AXOX4. REFUSED ENOXAPARIN INJECTION AND NYSTATIN POWDER. NO S/S ACUTE DISTRESS NOTED OR REPORTED AT THIS TIME. WILL CONT TO MONITOR FOR ANY CHANGES IN CONDITION.
[2019-01-19 04:41] LABS: CALCIUM 9.3 mg/dL (8.5-10.1); CREATININE 1.1 mg/dL (0.6-1.0); MAGNESIUM 1.8 mg/dL (1.8-2.4); POTASSIUM 3.3 mmol/L (3.5-5.1)
[2019-01-19 05:05] LABS: BASOPHILS 0.5 % (0.0-2.0); EOSINOPHILS 3.6 % (0.0-3.0); HEMATOCRIT 35.7 % (37.0-47.0); HEMOGLOBIN 11.3 gm/dL (12.0-15.0); LYMPHOCYTES 20.9 % (24.0-44.0); MCH 26.2 pg (26.0-34.0); MCHC 31.8 g/dL (28.0-37.0); MCV 82.6 fL (80.0-100.0); MONOCYTES 4.3 % (1.0-8.0); PLATELET COUNT 295 thou/uL (150-400); POLYS 70.7 % (36.0-66.0); RBC 4.32 mil/uL (4.20-5.00); RDW 15.2 % (10.5-14.5); WBC 11.3 thou/uL (4.0-11.0)
[2019-01-19 08:00] VITALS: BP 115/66
--- NOTE | 2019-01-19 09:48 | NUR ---
Assumed patient care at 0715. Patient's vital signs are stable. She continues to refuse some of her medications. Today she refused Enoxaparin 40mg SUBQ and Nystatin Topical Powder/Cream. Patient is concerned that there will not be enough staff members to assist with cleaning her up today, if she has a bowel movement. This nurse has assured her that "we will be fine." Will continue to monitor this patient.
[2019-01-19 15:00] VITALS: BP 113/42
[2019-01-19 19:42] VITALS: BP 132/58
--- NOTE | 2019-01-20 04:43 | NUR ---
ASSUMED CARE OF PT AT 1900HRS. PT IS AOX4 AND MAKE NEEDS BE KNOWN. PT DENIED PAIN OR NAUSEA. PT DENIED SOME MEDS/TREATEMENTS. ASSESSMENT CHARTED. EXTERNAL MORAN IN PLACE. PT WAS ABLE TO GET COMFORTABLE AND SLEEP PART OF THE SHIFT. VSS AND NO S/S OF ACUTE DISTRESS. WILL CONTINUE TO MONITOR.
[2019-01-20 07:33] VITALS: BP 112/57
--- NOTE | 2019-01-20 09:26 | NUR ---
Pts BG 148, some glucose intolerance with slight elevation during admit. Recommend obtain A1C level or accuchecks for few days to determine any patterns.
--- NOTE | 2019-01-20 09:27 | NUR ---
Severe class III obesity with BMI 130. Wts trending downward throughout admit as pt on spironolactone, torsemide. Eating 100% of meals. Noting slight elevation in BG levels 148. Recommend obtain A1C level or accuchecks to determine further patterns. Physician has indicated protein calorie malnutrition: will defer. Low nutrition risk
[2019-01-20 15:00] VITALS: BP 96/50
--- NOTE | 2019-01-20 16:28 | NUR ---
CM WAS NOTIFIED THAT PT ISN'T SATISFIED WITH FWW THAT WAS DELIVERED. CM SPOKE WITH [facility] WORKER AND PROVIDED UPDATE. NATALEE INDICATED SHE IS STILL PERSUEING PLACEMENT OPTIONS SHE IS ABLE. CM TO FOLLOW INDICATED WITH DC PLANNING. PT'S FATHER IS HERE VISITING.
[2019-01-20 19:00] VITALS: BP 122/71
--- NOTE | 2019-01-20 20:12 | NUR ---
Assumed patient care at 0715. Vital signs have been stable. Patient continues to refuse Lovenox as well as other medications. Patient's father came to visit today; he brought some unhealthy snacks. Patient has been requesting and receiving several cans of soda pop throughout both day and night shifts. She refuses to drink water. Patient also continues to order extra foods during meal times. Patient's diet has been adjusted as she is going to be consulting a Physician in facility regarding weight loss. Infomation passed on to manufacturing supervisor 2nd shift RN.
--- NOTE | 2019-01-21 02:42 | NUR ---
[facility] CARE OF PT AT 1900HRS. PT IS AOX4 AND LETS NEEDS BE KNOWN. FALL PRECAUTION IN PLACE. PT PLACED ON 1200ML FLULD RESTRICTION AND ON A LOW SODIUM DIET. PT WAS INFORMED ABOUT DIET CHAGE BUT PT IS NON COMPLIENT. PT CLAIMS THAT PT WAS NOT FULLY AWAKE WHEN CARE DECISIONS WERE BEING MADE. PT IS EMOTIONAL ABOUT NOT BEING IN CONTROL OF HER LIFE AND FEELS THAT HER CONCERNS ARE NOT BEING HEARD. PT WOULD LIKE TO BE MORE INVOLVED IN HER CARE DECISIONS. PT ALSO IS CONCERNED ABOUT NOT HAVING THE RIGHT WALKER FOR USE DURING PT. PT WAS ABLE TO GET COMFORTABLE AND SLEEP PART OF THE NIGHT. VSS AND NO S/S OF ACUTE DISTRESS. WILL CONTINUE TO MONITOR.
[2019-01-21 08:00] VITALS: BP 115/63
--- NOTE | 2019-01-21 09:53 | NUR ---
RD consult received for diet education for morbid obesity. Please see RD nutrition education note. Pt refusing and noncompliant.
--- NOTE | 2019-01-21 14:17 | NUR ---
PT PARTICIPATED WITH PT THIS DAY. THERAPY NOTES SENT TO [facility] FOR REVIEW. CM TO FOLLOW INDICATED WITH DC PLANNING.
--- NOTE | 2019-01-21 14:23 | NUR ---
DISCHARGE PLANNING. PATIENT IMPROVING TOWARDS DISCHARGE GOALS. POST ACUTE IS RECOMMENDED AT DISCHARGE. PATIENT REFERRAL FAXED TO [facility] FOR [facility]VIEW. CALL RECEIVED FROM [facility], VERIFIED REFERRAL RECEIVED. [facility] TO DO BEDSIDE EVAL WITH PATIENT TODAY. UNIT SW NOTIFIED. FOLLOWING.
[2019-01-21 15:00] VITALS: BP 122/71
--- NOTE | 2019-01-21 20:34 | NUR ---
Assumed pt care this am, pt was able to work with pt and was able to get up from bed. Some medication refused, still complains of care being given , no one is listening, had called her "fat", not being given what she wants from a fluid and nutrition stand point though explained by the dietitian and lympedema nurse. Though pt conformed to the 2000 ml fluid restriction, did not have her breakfast onoly potatoes for lunch but had finished almnost all her dinner. Pt has been very emotional and tearful but very demanding wanting her calls to be addressed immidiately. POC followed no signs of distress have been noted. Wound care has also been refused. Endorsed to the night nurse
--- NOTE | 2019-01-22 03:58 | NUR ---
ASSUMED CARE AROUND 1914. AXOX3. NO S/S ACUTE DIRESS NOTED OR REPORTED AT THIS TIME. WILL CONT TO MONITOR FOR ANY CHANGES IN CONDITION.
[2019-01-22 08:00] VITALS: BP 135/69
--- NOTE | 2019-01-22 14:36 | NUR ---
PT A&OX4, VSS, DENIES PAIN. PATIENT GIVEN JOSE F CARE. PT CONTINUE TO USE FEMALE CATHETER. PATIENT REQUESTED NEW DOCTOR D/T DISAGREEMENT WITH ASSIGNED DOCTOR. NEW DOCTOR GIVEN AND HAS SEEN PATIENT. PATIENT REFUSED ENOXAPARIN AND NYSTATIN TODAY. NO SIGNS OF DISTRESS. REPORT GIVEN TO ONCOMING NURSE APPROX 1315.
[2019-01-22 19:45] VITALS: BP 116/68
--- NOTE | 2019-01-23 03:48 | NUR ---
ASSUMED CARE AROUND 1915. AXOX3. FLUID RESTRICTION 2000CC. PT VERBALIZES UNDERSTANDING. NO S/S ACUTE DISTRESS NOTED OR REPORTED AT THIS TIME. WILL CONT TO MONITOR FOR ANY CHANGES IN CONDITION.
--- NOTE | 2019-01-23 07:38 | NUR ---
Nutrition Update: Received new orders for Calorie Count per provider. Nutrition ed recently attempted 01/21, but pt refused. See RD education note. RD placed Calorie Count packet outside pt's room with instructions to start today at breakfast. Will follow up to calculate meal results tomorrow, 01/24. Pt remains on a 2 g Na diet, w/ 1400 kcal and 2000 ml fluid restrictions per active diet order in EMR. Per latest 01/22 provider note, mentions pt will be allowed to eat what she wants and perform the calorie count to see what it amounts to.
[2019-01-23 08:42] VITALS: BP 111/52
--- NOTE | 2019-01-23 14:47 | NUR ---
ASSUMED CARE OF THE PT AT 0700. PT IS VERY UPSET TO WHY SHE HAS TO FIND HER OWN LIVING MEANS AND WHY HER DIET IS NOT REGULAR. THE DOCTOR SPOKE WITH THE PT IN DETAIL FOR OVER 20 MINUTES, PT STILL WAS UPSET. [facility] CONS[facility]. PT CHANGED ALONG WITH LINEN AND URINE DUMPED FROM THE EXTERNAL CATHETER. PT IS ON 2000ML FLUID RESTRICTION AND SODIUM AND CALORIC RESTRICTION. PT REFUSES SCD'S AND NYASTATIN, WELL BLOOD THINNER, SEE EMAR. ALL FOUR BED RAILS ARE UP FOR PRECAUTION, PT EDUCATED. WILL CONTINUE TO MONITOR THE PT
[2019-01-23 16:11] LABS: CALCIUM 9.6 mg/dL (8.5-10.1); CREATININE 1.1 mg/dL (0.6-1.0); POTASSIUM 3.8 mmol/L (3.5-5.1)
[2019-01-23 16:15] VITALS: BP 126/65
[2019-01-23 19:13] VITALS: BP 119/70
[2019-01-24 07:39] VITALS: BP 112/54
--- NOTE | 2019-01-24 08:23 | NUR ---
PROGRESS PT A/O X4. STILL REFUSING SOME TREATMENTS AND MEDS BUT IS COMPLYING WITH DIURETICS AND POTASSIUM. ON A CALORIE COUNT AND A 2000 CC FLUID RESTRICTION. EXTERNAL FEMALE CATH IN PLACE WITH GOOD OUTPUT. PT ALLOWS ASSESSMENT LUNGS CLEAR BS SOUNDS POSITIVE SKIN WARM DRY AND INTACT SOME REDNESS NOTED IN FOLDS AND HAS NYSTATION POWDER ORDERED REFUSED ON MY SHIFT. DENIES PAIN. CONTINUE POC.
--- NOTE | 2019-01-24 09:04 | NUR ---
Calorie count was started 01/23 however no menus with % intake were saved. Reviewed process with nursing and will restart this am. Pt still refuses to comply with any diet restrictions and drinking excessive amounts of soda. Followup again on 01/27 for calorie count through the weekend
--- NOTE | 2019-01-24 13:15 | NUR ---
CM SEATING AND MOBILITY TECHNOLOGIST REACHED OUT TO CONTENT ARCHITECT WHO IS REACHING OUT TO THE STATE. CM SENT REFERRALS TO: [facility]- [facility]- [facility]- [facility]
--- NOTE | 2019-01-24 17:16 | NUR ---
PATIENT REFUSED HER LOVENOX THIS AM. EDUCATED ON NEED TO HAVE IT BUT SHE STILL MAINTAINED THAT SHE DOES NOT NEED IT. ALERT ORIENTED X4. NO COMPLAIN OF PAIN AT THIS TIME. RESPIRATIONS ARE NON LABORED. WILL CONT WITH PLAN OF CARE.
--- NOTE | 2019-01-25 01:29 | NUR ---
ASSUMED CARE OF PT AT 1900HRS. PT IS AOX4 AND LET NEEDS BE KNOWN . FALL PRECAUTION IN PLACE. PT REPORTED SOME PAIN AND WAS TREATED WITH PRN PAIN MEDS. PT DENIED NAUSEA. PT DENIED [place] MEDICATIONS. EXTERNAL FEMALE CATH IN PLACE AND IS WORKING WELL. PT WAS ABLE TO GET COMFORTABLE ENOUGH TO SLEEP PART OF THE SHIFT. VSS AND NO S/S OF ACUTE DISTRESS. WILL CONTINUE TO MONITOR.
[2019-01-25 09:41] VITALS: BP 108/63
[2019-01-25 14:28] VITALS: BP 127/60
--- NOTE | 2019-01-25 20:34 | NUR ---
PATIENT ALER AND ORIENTED AND SELF DIRECTS HER CARE AND IS WAITING FOR PLACEMENT TO EXTENDED CARE FACILITY. PATIENT HAD TWO BM'S TODAY AND IS MAINTAINING FLUID RESTRICTIONS AND CALORIE COUNT.
[2019-01-25 21:29] VITALS: BP 138/81
--- NOTE | 2019-01-26 04:41 | NUR ---
ASSUMED CARE EUGENIO 193. AXOX4. CALL APPROPRIATELY FOR ASSISTANCE. REFUSED ENOXAPARIN AND NYASTATIN POWDER. NO S/S ACUTE DISTRESS NOTED OR REPORTED AT THIS TIME. WILL CONT TO MONITOR FOR ANY CHANGES IN CONDITION.
[2019-01-26 08:00] VITALS: BP 111/53
[2019-01-26 15:00] VITALS: BP 130/67
--- NOTE | 2019-01-26 18:37 | NUR ---
Assumed patient care at 0715. Patient continues to be confined to her bed. She is on a 2000cc fluid restriction and a Reduced Fat Diet. Patient has had two small cans of soda during Dayshift today. Patient has been upset because staff "can't ever get here on time to change my urine cannister!" Patient was complaining that the cannister had "lost it's vaccumn." Maintenence was called, as this nurse was unable to find any problems with it. Maintenence came shortly after. Patient then informed staff "I just fixed it myself!" Patient has been complaining about staff and physicians throughout the day. Will report to on-coming nurse.
[2019-01-26 19:26] VITALS: BP 119/63
--- NOTE | 2019-01-27 04:48 | NUR ---
ASSUMED CARE AROUND 1914. C/O FEMALE EXTERNAL CATH NOT BEING EMPTIED ON TIME. REQUEST SECOND SUCTION CANNISTER SET UP. NO S/S ACUTE DISTRESS NOTED OR REPORTED AT THIS TIME. WILL CONT TO MONITOR FOR ANY CHANGES IN CONDITION.
[2019-01-27 08:43] VITALS: BP 118/81
--- NOTE | 2019-01-27 13:44 | NUR ---
CM HEARD BACK FROM [facility] THIS AM AND HE INDICATED THAT AFTER FURTHER REVIEW THEY AREN'T ABLE TO MEET PT'S NEEDS. CM TO CONTINUE TO FOLLOW INDICATED WITH DC PLANNING.
[2019-01-27 15:35] VITALS: BP 115/59
[2019-01-27 19:59] VITALS: BP 117/67
--- NOTE | 2019-01-27 20:29 | NUR ---
Patient's vital signs continue to be stable as well as her status of "bedridden" due to Super Obesity. She continues on 1999 calorie fluid restriction. She has only consumed 240cc of [place] pop during this nurse's shift. Patient continues to "nzei-dno-ifxtyn" her medications. She refused Physical Therapy today as she stated "I just don't feel like dealing with it today." She has cut down her food consumption. Report given to on-coming nurse.
--- NOTE | 2019-01-28 04:32 | NUR ---
PATIENT AOX4 MAKES NEEDS KNOWN. PATIENT REFUSED HS MEDS. PATIENT CONTINUES TO BE ON FLUID RRESTRICTION 2400 ML. PATIENT DENIED PAIN OR DISCOMFORT. PATIENT IN BED ASLEEP AT THIS TIME BREATHING REGULAR AND UNLABOURED.
[2019-01-28 08:47] VITALS: BP 113/65
--- NOTE | 2019-01-28 11:56 | NUR ---
Received awake on bed. Due medications given as prescribed, able to swallow meds w/o difficulty, diuretics given at a later time to give phsical therapist time to work with her in AM. On room air. Vital signs stable. Still refused to have IV line, refusing levonox. On regular diet- tolerating well; no nausea, no vomiting and no abdominal pain noted. On 2L fluid restriction. With external vera in place- output measured and recorded accordingly. Assisted in ADLs. Pt seen by Dr Monterroso- with consult to Dr Blanco- asked pt if she agrees with the consult before US calls it- pt agreed as well as to the additional diuretic prescribed for her.
--- NOTE | 2019-01-28 15:37 | NUR ---
CM HEARD BACK FROM [facility] AND [facility] AND THEY INDICATED THAT THEY WERE HAVING AN ADMISSIONS MEETING AND WOULD REVIEW REFERRAL. CM GLOBAL SAFETY OFFICER ASKED THAT CM FAX LIST OF FACILITIES REFERRALS HAD BEEN SENT TO. CM COMPILED LIST OF 40 FACILITIES THAT REFERRALS HAD BEEN SENT TO AND FAXED IT TO [facility]GE [facility]'S ATTENTION FAX NUMBER WASN'T WORKING. CALLED [facility] AND THEY SAID TO FAX TO . CM TO FOLLOW INDICATED WITH DC PLANNING.
[2019-01-28 16:48] VITALS: BP 120/51
[2019-01-28 19:33] VITALS: BP 107/73
--- NOTE | 2019-01-29 05:08 | NUR ---
PATIENT AOX4 MAKES NEEDS KNOWN. PATIENT REFUSED HS MEDS. PATIENT REMOVE KRZYSZTOF WRAP ON LLE. PATIENT DENIED PAIN OR DISCOMFORT. PATIENT INCONTIENT AND USES EXTERNAL CATHTER. PATIENT IN BED ASLEEP AT THIS TIME BREATHING REGULAR AND UNLABOURED.
[2019-01-29 06:05] LABS: ALBUMIN 2.7 g/dL (3.4-5.0); CREATININE 1.1 mg/dL (0.6-1.0); PHOSPHORUS 4.1 mg/dL (2.5-4.9); POTASSIUM 3.4 mmol/L (3.5-5.1)
[2019-01-29 07:40] VITALS: BP 110/53
--- NOTE | 2019-01-29 12:10 | NUR ---
CM CALLED AND SPOKE WITH ADMISSION STAFF AT [facility] AND THEY INDICATED THEY CAN'T ACCOMMODATE PT, CM CALLED [facility] AND [facility] AND NEITHER ARE ABLE TO ACCOMODATE PT. PHYSICIAN INDICATED THAT HE HAD FAXED APPOINTMENT REQUEST ON PT'S BEHALF TO [facility] IN [place] FOR POSSIBLE APPOINTMENT MARIO ALBERTO 2. CM TO FOLLOW INDICATED WITH DC PLANNING.
[2019-01-29 15:11] VITALS: BP 135/87
--- NOTE | 2019-01-29 15:51 | NUR ---
Following for d/c planning needs. Called the following facilities re: placement: [facility] [phone]; fax [phone]. Faxed referral [facility] [phone]--they do not accept bariatric [facility] [phone]--they do not accept bariatric [facility] [phone]--declined [facility] [phone]; fax [phone]--faxed referral [facility]--no options for placement [facility]--declined [facility]--spoke with social work associate--unable to assist [facility] [phone]; fax [phone]. Faxed referral [facility] [phone]--declined [facility] [phone]; fax [phone]. Faxed referral [facility] [phone]--declined. Weight limit 350# [facility] [phone]--left message
--- NOTE | 2019-01-29 18:38 | NUR ---
Assumed patient care at 0715. Patient's vital signs have been stable. She continues to refuse Nystatin Cream/powder and Heparin sub-q. Patient continues on 2000cc fluid restriction in which she has been compliant with. Patient continues to use external catheters for incontinence due to immobilization. Patient has had two BM's today; one was normal, one was loose. She was given her prn medication for this which was effective. Will report to on-coming RN.
[2019-01-29 19:50] VITALS: BP 127/80
--- NOTE | 2019-01-30 03:24 | NUR ---
ASSUMED CARE OF PT AT 1900HRS. PT AOX4 AND LETS NEEDS BE KNOWN. PT REFUSED SOME OF HER MEDICATION. PT ON 2000ML FLUID RESTRICTION, HOWEVER, PT HAD FLUIDS PROVIDED BY FAMILY MEMBER. PT STATES THAT FLUID RESTRICTION WAS NOT EXCEEDED EVEN WITH DRINKS FROM HOME. PT WAS ABLE TO GET COMFORTABLE AND SLEEP PART OF THE SHIFT. VSS AND NO S/S OF ACUTE DISTRESS. WILL CONTINUE TO MONITOR.
[2019-01-30 08:16] VITALS: BP 112/72
--- NOTE | 2019-01-30 10:38 | NUR ---
PT A&OX4, VSS, DENIES PAIN. PANUS REMAINS RED AND PATIENT REFUSING NYSTATIN. PATIENT REMAINS IN 2000 ML FLUID RESTRICTION. PATIENT TOLERATING DIET. PATIENT MOOD PLEASANT TODAY. NO SIGNS OF DISTRESS. WILL CONTINUE TO MONITOR.
--- NOTE | 2019-01-30 14:15 | NUR ---
WENT IN TO SEE Pt AT 1320 AND LEFT ROOM AT 1410. Pt FOCUSED ON BEING UP SINCE 2AM, PEOPLE ARE COMING AT HER AND SHE HAS RIGHTS TO SAY NO. SHE IS FIGHTING FOR HERSELF AND IS NOT A YES GIRL. SHE HAS LEARNED TO SAY NO. SHE HAS TO LIVE WITH THE CONSEQUENCES OF THE TREATMENTS. SHE NEEDS PROOF THAT SOMETHING IS GOING TO WORK BEFORE SHE WILL LET A NEW DRUG IN HER SYSTEM. I HAVE TRIED ALOT OF THE [facility]URNER STUFF BEFORE AND THEY ONLY MADE IT WORSE. SEVERAL TIMES THERAPIST TRY TO REDIRECT PT TO THERAPY AND SHE CONT TO RETURN TO SAYING, IM NOT BEING HEARD, I STILL FIGHT HERE FIGHTING TO BE HEARD. I HAVE TO MANY THINGS COMING AT ME RIGHT NOW. I CANT HANDLE IT. DISCUSSED LIPEDEMA WITH Pt IN REFERENCE TO DIET AND COMPRESSION. WHEN ASKED IF SHE FELT LIKE SHE WAS GETTING BENIFIT FROM TREATMENT SHE DID NOT GIVE A DIRECT ANSWER. STATED HER FATHER BROUGHT THE WRONG WRAPS IN AND THE CORRECT ONES ON BOXED UP AND CAN NOT GET TO THEM. SHE DID STATE THAT THE WRAPS THAT WERE PLACED ON HER ON SUNDAY BEGAIN TO HURT. THE ONE ON THE FOOT SHE REMOVED SUNDAY EVENING AND THE ONE ON THE LEG SHE REMOVED ON SUNDAY EVENING. REPORTS THERE WERE WELDS ON THE LEG. THERAPIST CKED SKIN AND DID NOT SEE WELD OR BUMPS BUT SIGNS OF DRY SKIN. APPLIED LOTION. Pt STATED SHE DID HAVE HER TUBIGRIP WRAPS HERE BUT DID NOT WANT WE TO DON THEM TODAY BECAUSE SHE WAS TOO UP SET. PEOPLE KEEP COMING AT ME AND I CANT HANDLE IT. DISCUSSED TALKING TO A COUNSELOR ABOUT HOW SHE WAS FEELING. SHE STATED THAT SHE HAS HAD BAD EXPERIENCES IN THE PAST AND DID NOT WANT TO TAKE TO ONE RIGHT NOW BECAUSE SHE DID NOT WANT TO START WITH ONE AND HAVE TO CHANGE. I DON'T KNOW WHO LONG IM GOING TO BE HERE. Pt CONTS TO STATE THEY DON'T UNDERSTAND WHAT IS WRONG WITH ME AND THEY DONT LISTEN TO ME. I HAVE LIPEDEMA AND BARIATIC SURGERY IS NOT GOING TO FIX IT. WE HAVE TO FIX THE HEAD TOO. I WILL START TO DO WHAT I AM SUPPOSE TO DO. JUST NEED PEOPLE TO STOP COMING AT ME SO I CAN.
[2019-01-30 15:37] VITALS: BP 114/59
[2019-01-30 20:00] VITALS: BP 123/78
[2019-01-31 07:10] VITALS: BP 110/51
--- NOTE | 2019-01-31 12:53 | NUR ---
Followup: extended length of stay, self care deficit, class III extreme obesity with BMI of 124. Refuses diet education, not interested in bariatric surgery. Wts have come down 65 lb over admit, diuresis. On fluid restriction. CM working on placement. Low nutrition risk with pt refusal to comply with any initiation of diet restrictions.
[2019-01-31 15:10] VITALS: BP 122/76
--- NOTE | 2019-01-31 20:19 | NUR ---
Assumed pt care this am, still refused several of her meds and would only choose what she wants to take. Pt was very sleepy and lethargic in the am since she was moved from [facility] to [address] [place] [address] 5 am. Pt got upset coz literature of medication was placed over her bed and she was asleep and was not made aware. Had a large bm today, deng care and bed change done. Pt was able to stand for less than 5 min with PT. Back on a regular diet with fluid restrictions of 2000 ml. POC followed, endorsed to the night nurse.
[2019-01-31 20:25] VITALS: BP 113/64
--- NOTE | 2019-02-01 03:39 | NUR ---
PT OS A/O X4.PT IS ON STRICT FLUID RESTRICTION OF 2000CC 24HRS.PT HAS AN EXTERNAL FEMALE CATHETER IN PLACE.WILL CONTINUE TO MONITOR
[2019-02-01 04:44] LABS: CALCIUM 9.7 mg/dL (8.5-10.1); POTASSIUM 3.1 mmol/L (3.5-5.1)
[2019-02-01 07:12] VITALS: BP 101/62
[2019-02-01 17:57] VITALS: BP 111/70
--- NOTE | 2019-02-01 19:50 | NUR ---
Assumed pt care this am, VS stable . deng care and bed change done. Pt has a large BM. Fluid restrictions done and intake monitored. POC followed, no signs or verbalizations of distress have been noted. Friend came to visit this pm. 2000 ml fluid restrictions managed and maintained. endorsed to the night nurse.
[2019-02-01 20:50] VITALS: BP 112/72
--- NOTE | 2019-02-02 04:54 | NUR ---
Pt. rested quietly at intervals during the night when checked on during frequent rounds. She offers no c/o pain or discomfort. Able to make needs known.
[2019-02-02 07:23] VITALS: BP 126/59
[2019-02-02 16:23] VITALS: BP 118/73
[2019-02-02 19:01] VITALS: BP 111/72
--- NOTE | 2019-02-03 02:57 | NUR ---
ASSUMED CARE OF PT FROM DAY SHIFT PT SSITTING IN BED ON LAPTOP , REFUSES ALL HS MEDICATION, ASESSMENT COMPLETED AND CHARTED, REFUSES NYSTIN FOR PANNOUS AREA. PT RESTED WELL THROUGHOUT HOURLY ROUNDS WILL CONITNUE WITH PLAN OF CARE.
[2019-02-03 04:12] VITALS: BP 116/65
[2019-02-03 07:17] VITALS: BP 121/66
[2019-02-03 16:23] VITALS: BP 119/70
--- NOTE | 2019-02-03 18:30 | NUR ---
PT ASSESSED AT START OF SHIFT. PT WORKED W/ THERAPIST THIS AFTERNOON AND GOT OUT OF BED. BED ZEROED ADN PT REWEIGHED FOR ACCURACY. NO REQUEST FOR PAIN MEDS. EATING OK. WON'T DRINK WATER BUT ONLY SODAS. SLEPT SOME.
[2019-02-03 18:53] VITALS: BP 143/66
[2019-02-04 03:42] VITALS: BP 114/61
--- NOTE | 2019-02-04 04:20 | NUR ---
ASSUMED CARE FROM DAY SHIFT PT SITTING IN BED ON COMPUTER WITH FLAT AFFECT DENIES PAIN , VOICED NO CONCERNS OR GOAL FOR THIS SHIFT. REFUSED HS MEDICATION. FEMALE CATH ON AND PATENT. PT REMAIN AWAKE THROUGHOUT THE NIGHT ON LAPTOP, NO CHANGES IN PT ASSESSMENT.
[2019-02-04 08:08] VITALS: BP 108/63
--- NOTE | 2019-02-04 10:56 | NUR ---
PT IS DOWN TO 564LBS. CM RESENT REFERRAL TO [facility] FOR THEM TO REVIEW AGAIN. CM TO FOLLOW INDICATED WITH DC PLANNIGN.
[2019-02-04 16:55] VITALS: BP 112/60
[2019-02-04 19:01] VITALS: BP 111/59
--- NOTE | 2019-02-04 21:15 | NUR ---
PT A&OX4, VSS, DENIES PAIN. PATIENT HAD BM TODAY, JOSE F CARE GIVEN. PATIENT REFUSES LOVENOX AND NYSTATIN. PATIENT REMAINS ON 2000 ML FLUID RESTRICTION. NO IV ACCESS. AWAITING PLACEMENT TO FACILITY. NO SIGNS OF DISTRESS. WILL CONTINUE TO MONITOR.
--- NOTE | 2019-02-05 03:11 | NUR ---
patient aox4 makes needs known. patient refused hs meds. patient on fluid restriction of 2,000 ml. patient denied pain or discomfort. fall precaution in place. patient in bed asleep at this time breathing regular and unlaboured.
[2019-02-05 08:14] VITALS: BP 120/71
--- NOTE | 2019-02-05 13:33 | NUR ---
Received awake on bed. Due medications given as prescribed, pt still refusing to have enoxaparin, nystatin powder- just wanting to have her diuretics. On fluid restriction- pt informed and updated how much she has taken already. Assited in ADLs. No IV noted- refusing IV since admission. Still waiting for placement. With external vera catheter in place- output measured and recorded accordingly.
[2019-02-05 17:23] VITALS: BP 115/76
[2019-02-05 20:25] VITALS: BP 120/55
[2019-02-06 04:46] VITALS: BP 128/59
--- NOTE | 2019-02-06 08:10 | NUR ---
PT IN BED. DENIES PAIN. REFUSED LOVENOX. RESTING COMFORTABLY. NO NEEDS VOICED. CALL LIGHT WITHIN REACH. WILL CONTINUE TO PROVIDE FREQUENT OBSERVATION.
[2019-02-06 08:12] VITALS: BP 119/62
[2019-02-06 13:33] LABS: CALCIUM 10.8 mg/dL (8.5-10.1); CREATININE 1.2 mg/dL (0.6-1.0)
[2019-02-06 13:35] LABS: POTASSIUM 2.6 mmol/L (3.5-5.1)
[2019-02-06 16:48] VITALS: BP 124/66
[2019-02-06 19:03] VITALS: BP 110/61
--- NOTE | 2019-02-06 20:22 | NUR ---
Assumed care of pt at 0700. A&ox4. External catheter in place. Pt refuses Lovenox and nystatin. Critical potassium. Provide aware. New orders noted. 2000 mL fluid restrict. Call light within reach. report given to rosa SIMON.
--- NOTE | 2019-02-07 03:12 | NUR ---
ASSESSMENT COMPLETED.PT CONT ON 2000CC FLUID RESTRICTION.PT HAD TWO SOFT FORMED STOOLS THIS SHIFT.EXT CATH IN PLACE WITH ADEQUATE OUTPUT.PT REF HER LOVENOX AND NYSTATIN AT HS.PT WITH NO IV ACCESS,PER REPORT,PROVIDER AWARE.PT RESTING ON HER BED AT THIS TIME.CALL LIGHT WITHIN REACH.
[2019-02-07 03:56] VITALS: BP 114/50
[2019-02-07 07:06] VITALS: BP 119/60
--- NOTE | 2019-02-07 10:35 | NUR ---
CM PARTICIPATED IN PHONE CONFERENCE WITH [facility], , CM SEARCH DIRECTOR AND TWO REPS FROM [facility] THIS AM. DHSS INDICATED THAT THEY HAD SPOKEN WITH ALINA WITH [facility] AND THAT THEY HAD INDICATED THAT THEY COULD ACCEPT PT FOR SKILLED REHAB THEN TRANSITION PT TO LTC MEDICAID BED FOR AT LEAST A 90 DAY STAY FOR PT TO QUALIFY FOR MONEY FOLLOWES THE PERSON CASI FOR ASSISTANCE TO DC BACK TO COMMUNITY. IRENE SPOKE WITH ALINA AND SHE ASKED THAT REFERRAL BE SENT TO [facility] IN ADMISSIONS AT [facility]. CM INDICATED THAT WE HAD SENT REFERRAL IN THE PAST BUT THAT CM WOULD FAX AGAIN. CM FAXED REFERRAL AND CALLED TO C[facility]. CM LEFT VM FOR [facility]. CM FOLLOWING TO ASSIST WITH POSSIBLE DC.
--- NOTE | 2019-02-07 11:28 | NUR ---
Nutrition follow up: Extended LOS continues. No additional diet restrictions have been added back per past pt refusal to comply. On a regular diet, but is restricted to 2000 ml fluid restriction. Ongoing diuresis. Sporadic meal intakes (one as low as 5%, most range 30-80%). 1 meal refusal in the last wk. 7-Day Meal Average: 55% per 20 meals (01/28 - 02/06) Recent 2-Day Meal Average: 73% (02/05 - 02/06) Pt finishing < 100% of her trays majority of the time, therefore, does not appear to be greatly overeating. Weight is down nearly 190# in the last 5 weeks from 754# per 01/02 to 564# per 02/07. Plan for skilled rehab, with transition to LTC Medicaid bed. Low nutrition risk.
[2019-02-07 15:58] VITALS: BP 109/69
--- NOTE | 2019-02-07 18:02 | NUR ---
Assumed care of pt at 0700. On fluid restrict 2500 mL. Patient worked with physical therapy. Refuses lovenox and nystatin. Pain controlled. Awaiting placement. External catheter in place. No complaints at this time.
[2019-02-07 21:10] VITALS: BP 109/56
--- NOTE | 2019-02-08 03:30 | NUR ---
ASSUMED PT CARE AT 1900. PT DENIES PAIN. REFUSED LOVENOX AND NYSTATIN. DRINKING ONLY SODA WHILE ON FLUID RESTRICTION. CALLS ABOUT WANTING CANNISTER EMPTIED. UP MOST THE NIGHT ON THE PHONE AND COMPUTER.
[2019-02-08 05:06] LABS: ALBUMIN 3.3 g/dL (3.4-5.0); CALCIUM 10.6 mg/dL (8.5-10.1); CREATININE 1.2 mg/dL (0.6-1.0); MAGNESIUM 1.2 mg/dL (1.8-2.4); PHOSPHORUS 3.8 mg/dL (2.5-4.9); POTASSIUM 3.1 mmol/L (3.5-5.1)
[2019-02-08 08:27] VITALS: BP 105/63
[2019-02-08 15:30] VITALS: BP 130/90
--- NOTE | 2019-02-08 18:33 | NUR ---
Assumed care of pt at 0700. On 2500 mL fluid restriction. External catheter in place. 3 BMs during shift. Denies pain. No IV. Call light within reach. Awaiting placement. Pt pleasant and follows commands.
[2019-02-08 19:35] VITALS: BP 111/67
--- NOTE | 2019-02-09 04:46 | NUR ---
PATIENT ALERT AND ORIENTED X4. ON 2500CC FR. DOES NOT DRINK WATER, ONLY DRINKS RORY POP. REMAINS ON BEDREST FOR THIS SHIFT. HAS EXTERNAL FEMALE CATHERTER, PATENT LIGHT YELLOW URINE. C/O HERNIA PAIN IN ABD BUT DID NOT WANT ANYTHING FOR IT. SLEPT MOST OF NIGHT.
[2019-02-09 07:53] VITALS: BP 112/71
[2019-02-09 16:42] VITALS: BP 112/61
--- NOTE | 2019-02-09 19:28 | NUR ---
PT A&OX4. NO IV PRESENT. PT NON AMBULATORY AT THIS TIME DUE TO OBESITY. EXTERNAL CATH IN PLACE. NO C/O FROM PT TODAY. CALL LIGHT W/I REACH. WILL CONT POC.
[2019-02-09 20:28] VITALS: BP 120/53
[2019-02-10 05:41] LABS: CREATININE 1.1 mg/dL (0.6-1.0)
[2019-02-10 08:00] VITALS: BP 110/59
--- NOTE | 2019-02-10 08:35 | NUR ---
PT LYING IN BED. DENIES PAIN. RESTING COMFORTABLY. NO NEEDS VOICED. CALL LIGHT WITHIN REACH. WILL CONTINUE TO PROVIDE FREQUENT OBSERVATION.
[2019-02-10 16:20] VITALS: BP 111/62
--- NOTE | 2019-02-10 17:32 | NUR ---
IRENE FOLLOWED UP WITH [facility] IN ADMISSION AT [facility] THIS DAY AND SHE INDICATED THAT THEY HAD REVIEWED WITH THEIR DON AND WEREN'T GOING TO BE ABLE TO ACCEPT PT. CM NOTIFIED CARE TEAM. CM TO FOLLOW INDICATED WITH DC PLANNING.
[2019-02-10 18:59] VITALS: BP 104/65
--- NOTE | 2019-02-10 20:33 | NUR ---
PATIENT NON COMPLIANT WITH TX'S AND MEDS DOES NOT WANT LOVENOX OR NYSTATIN POWDER STATES "IM" HEALED. PT DID GET UP WITH THERAPY AND WALKER.
[2019-02-11 04:28] VITALS: BP 114/55
--- NOTE | 2019-02-11 05:49 | NUR ---
PATIENT ALERT AND ORIENTED X4. PATIENT DEPRESSED, ANGRY AND SAD BECAUSE SHE SAYS NOONE LISTEN'S TO HER ABOUT HER BODY AND WHAT SHE BELIEVES TO BE GOING ON WITH HER. REMAINS ON A 2500 FR. STAYS WITHIN THAT AMOUNT. SLEEPS VERY LITTLE . PATIENT IS DEPRESSED. DENIES PAIN.
[2019-02-11 06:43] LABS: CALCIUM 10.2 mg/dL (8.5-10.1); CREATININE 1.2 mg/dL (0.6-1.0); MAGNESIUM 1.2 mg/dL (1.8-2.4); POTASSIUM 3.2 mmol/L (3.5-5.1)
[2019-02-11 09:14] VITALS: BP 134/65
--- NOTE | 2019-02-11 10:50 | NUR ---
Assumed care of pt at 0700. Pt states she will not take any diuretics today and will not follow fluid restriction today. provider aware. External female catheter in place. Call light within reach. Will continue to monitor.
[2019-02-11 18:20] VITALS: BP 124/73
[2019-02-11 19:06] VITALS: BP 120/61
--- NOTE | 2019-02-12 03:57 | NUR ---
ASSESSMENT COMPLETED.PT REF HER LOVENOX AND NYSTATIN POWDER AT HS,EDUCATION GIVEN ON THE NEED TO RECEIVE THE LOVENOX,PT VOICED UNDERSTANDING BUT STILL REFUSED TO TAKE IT.PT CONT ON 2500 CC FLUID RESTRICTION.PT REF TO DRINK WATER PREFERS TO DRINK SODA ALL SHIFT .PT WAS ENCOURAGED TO DRINK MORE OF WATER BUT SHE STILL REFUSED.PT'S FRIEND HERE AT 2100.PT RESTING ON HER BED AT THIS TIME.CALL LIGHT WITHIN REACH.
[2019-02-12 04:29] VITALS: BP 119/58
[2019-02-12 09:37] VITALS: BP 110/61
[2019-02-12 17:47] VITALS: BP 118/60
[2019-02-12 19:55] VITALS: BP 100/54
--- NOTE | 2019-02-12 20:27 | NUR ---
ASSUMED CARE OF PT AT APPROX 0700. PT IS ALERT AND ORIENTED X4. ASSESSMENT CAHRTED. DENIES PAIN. VSS. PT REFUSES CARES AND SOME MEDS. PT IS READY FOR DISCHARGE BUT WAITING ON PLACEMENT. NAD NOTED THIS SHIFT.
--- NOTE | 2019-02-13 04:25 | NUR ---
PATIENT ALERT AND ORIENTED X4. PATIENT UPSET AND BEGINNING OF SHIFT BECAUSE SHE SAYS NOONE LISTENS TO HER. REFUSES SOME OF HER MEDS. HAS A FEMALE EXTERNAL CATH. SHE SAID THE BLUE TOP PF THE CANNISTER IS TO BE CHANGED EVERY TIME THE CANNISTER IS FULL. TRIED TO EXPLAIN TO HER THAT IT WAS NOT NECESSARY. SHE SAID EVERYONE ELSE WAS CHANGING IT AT THAT TIME. WENT AHEAD AND CHANGED IT FOR A NEW ONE. DENIES PAIN. SLEPT MOST OF NIGHT.
[2019-02-13 05:31] LABS: CALCIUM 9.8 mg/dL (8.5-10.1); CREATININE 0.9 mg/dL (0.6-1.0); MAGNESIUM 1.2 mg/dL (1.8-2.4); POTASSIUM 3.4 mmol/L (3.5-5.1)
[2019-02-13 08:57] VITALS: BP 126/69
--- NOTE | 2019-02-13 11:17 | NUR ---
PT IN BARIATRIC BED. PT CLEANED WITH ASSIST XS 2. CLEANED AND EXTERNAL CATH PLACED. PT PLACES HERSELF. PT NON COMPLIANT WITH CARE REFUSES LOVENOX AND NYSTATIN. PT TOOK AM MEDS. THERAPY HAD PATIENT STAND AND WALKED 10 FEET. PT STATES NO PAIN OR RESP DISTRESS.
[2019-02-13 16:00] VITALS: BP 116/71
--- NOTE | 2019-02-13 17:00 | NUR ---
Following for d/c planning needs. Reviewed chart and spoke with nurse and pt. Pt reportedly weighs 538#. Called [facility], [facility], [place] and [facility] to see if they are able to reconsider pt since she is down in weight. Faxed referrals. [facility] did on-site evaluation of pt and they are able to accept. Pt adamantly refuses to go to [facility]. Waiting to hear back from other facilities.
[2019-02-13 20:15] VITALS: BP 104/58
[2019-02-14 06:08] VITALS: BP 112/54
[2019-02-14 07:40] VITALS: BP 123/56
--- NOTE | 2019-02-14 07:48 | NUR ---
PT CALM AND COPERATIVE THIS SHIFT.DENIED PAIN,N/V. PT REFUSED HER LOVENOX AND NYSTATIN CREAM.PT REF TO CONT WITH HER FLUID REST.EXTERNAL CATH IN PLACE. PT REF TO BE WEIGHED THIS AM,STATED THAT SHE WILL WAIT FOR PT TO WEIGH HER THIS MA.REPORT TO AM NURSE.
--- NOTE | 2019-02-14 10:04 | NUR ---
Following for d/c planning needs. Reviewed chart and spoke with nurse and pt. Referral sent to [facility]. Liaison did on-site evaluation of pt and pt adamantly refuses to consider [facility]. In speaking with [facility] liaison, pt was only at [facility] for about 2 days prior to her calling police. They are not able to accept pt back. Today, pt is stating she will not consider going to SNF, as she has been to several in the past. Pt will only consider going to [facility]. Pt has been declined at [facility] because she does not have discharge plan. Pt today is saying she will be able to move in with her friend in a month. Friend just bought new house and will be moving in soon. Called [facility] and faxed face sheet. Asked [facility] liaison to visit with pt and verify d/c plans. [facility] said they would probably only keep pt 7-10 days, if in fact they accept.
--- NOTE | 2019-02-14 14:28 | NUR ---
Nutrition: Seen per weekly follow up. Pt continues to eat well. 84% meal average per the last 15 recorded meals since 02/07. Spent at least 20 mins in pt's room listening to her many food complaints and "lack of variety." Pt w/ extended length of stay, 6+ weeks. Took dinner order and confirmed RD would verify order to kitchen to make sure no missing items. Ongoing diuretics given severe lymphedema. Down to 538# per 1/3 documented wt in provider note, with starting weight of 754#. Difficult placement. Note low K+ at 3.4 mEq/L and low mag at 1.2 mg/dL per 1/2 labs. Recommend replacing. Low nutrition risk otherwise.
--- NOTE | 2019-02-14 14:57 | NUR ---
Following for d/c planning needs. Have contacted the following facilities re: possible admission: [facility] -- faxed referral, waiting for response [facility]--faxed referral, waiting for response [facility]--faxed referral, waiting for response [facility]--faxed referral, waiting for response [facility]--faxed referral, waiting for response [facility]--faxed referral, waiting for response [facility]--faxed referral, waiting for response [facility]--faxed referral, declined admission [place]--declined admission [facility]--declined admission [facility]--faxed referral--liaison will do on-site on Sunday [place]--reviewing information and will do on-site on Sunday [facility]--declined admission [place]--faxed referral, [facility]--[facility]ined [facility] [place]--no bed available [facility]--faxed referral, waiting on response Spoke with Jose Manuel Carmona, [facility] worker, who has several suggestions of other facilities to contact. Contacted those facilities at his request. Also, pt said her friend is buying a house and she will be able to stay with friend in a month. She demanded that [facility] re-evaluate. Called [facility] and faxed referral. They again decline.
[2019-02-14 16:10] VITALS: BP 116/67
--- NOTE | 2019-02-14 19:23 | NUR ---
Assumed care of pt at 0700. Pt feeling tired. Refuses physical therapy in the am. Denies pain. External female catheter in place. Refuses fluid restriction. Call light within reach. Report given to rosa SIMON.
[2019-02-14 21:07] VITALS: BP 108/62
--- NOTE | 2019-02-15 02:38 | NUR ---
PT IN A GOOD MOOD AT START OF SHIFT.PT REQUESTED FOR HER CANNISTER TO BE CHANGED PT REQUEST GRANTED.PT ENCOURAGED TO LET THIS NURSE CHANGE OUT HER TUBINGS FOR HER EXTERNAL CATH TOO,PT REFUSED SHE STATED THAT"[facility]IGHT [facility]STETRICS GYN CHANGED IT IN AM BEFORE LEAVING". NO BM NOTED SO FAR THIS SHIFT.PT STILL NOT COMPLIANT WITH FLUID RESTRICTION.PT RESTING ON HER BED AT THIS TIME.CALL LIGHT WITHIN REACH.
[2019-02-15 06:23] VITALS: BP 124/55
[2019-02-15 08:04] VITALS: BP 125/68
--- NOTE | 2019-02-15 13:01 | NUR ---
Assumed care of pt at 0700. Pt states she feels weak. Ext female cath in place. Called house sup to locate janine jug per doctor request. Large bowel movement. Call light within reach. Will continue to monitor.
[2019-02-15 17:26] VITALS: BP 121/69
[2019-02-15 20:20] VITALS: BP 114/62
--- NOTE | 2019-02-16 03:28 | NUR ---
PT EXPRESSED FRUSTRATION ABOUT HER CARE JUANA WHEN TRYING TO FIND A PLACE TO TRANSITION TO FROM THE HOSPITAL. DENIES PAIN.FEMALE EXTERNAL CATH IN PLACE AND WORKING WELL. SHE REFUSED THE NYSTATIN CREAM AND LOVENOX SHOT. CALL LIGHT WITHIN REACH-SHE CALLS APPROPRIATELY.
[2019-02-16 04:51] LABS: CALCIUM 10.4 mg/dL (8.5-10.1); CREATININE 1.1 mg/dL (0.6-1.0); MAGNESIUM 1.2 mg/dL (1.8-2.4)
[2019-02-16 05:03] LABS: POTASSIUM 2.9 mmol/L (3.5-5.1)
[2019-02-16 08:31] VITALS: BP 119/69
--- NOTE | 2019-02-16 14:01 | NUR ---
ASSUMED CARE OF THE PT AT 0700. PT REFUSED LOVENOX AND REFUSED FLUID RESTRICTIONS. PT REFUSED IV TO BRING UP POTASSIUM LEVELS. ELECTROLYTE LEVELS ARE LOW AND DOCTOR NOTIFIED. FALL PRECAUTIONS ARE IN PLACE, CALL LIGHT IS IWTHIN REACH AND BED IS IN THE LOWEST POSITION. EXTERNAL CATHETER IS IN PLACE AND CANNISTER IS REPLACED. WILL CONTINUE TO MONITOR THE PT.
[2019-02-16 17:34] VITALS: BP 119/61
[2019-02-16 19:19] VITALS: BP 116/54
--- NOTE | 2019-02-16 20:08 | NUR ---
1899 BEDSIDE REPORT WITH AILIN PT WITH NO CONCERNS, SODA GIVEN PER PT REQUEST. 1999 ASSESSMENT COMPLETED. CLIENT A+O X 4 WITH AFFECT APPROPRIATE TO HAPPY MOOD, PT SPEAKING OF SIGNIFICANT OTHER, AND SPIRITUALITY WHICH SHE STATES IS CRYSTALS AND WICCAN. CLIENT P/W/D WITH RADIAL AND PEDAL PULSES 2+ CARDIAC SOUNDS S1 S2 ON AUSCULTATION, LCTAB WITH UNLABORED RESPIRATIONS. PT STATES NO WRAPS ON LEGS PER HER REQUEST, REFUSES NYSTATIN, AND FLUID RESTRICTION AND LOVENOX. wILL CONTINUE TO MONITOR.
[2019-02-17 04:22] VITALS: BP 104/60
[2019-02-17 06:21] LABS: ABSOLUTE NEUTROPHILS 7.4 thou/uL (1.4-8.2); BASOPHILS 0.3 % (0.0-2.0); EOSINOPHILS 2.1 % (0.0-3.0); HEMATOCRIT 38.8 % (37.0-47.0); HEMOGLOBIN 12.3 gm/dL (12.0-15.0); LYMPHOCYTES 20.9 % (24.0-44.0); MCH 25.8 pg (26.0-34.0); MCHC 31.8 g/dL (28.0-37.0); MCV 81.1 fL (80.0-100.0); MONOCYTES 6.4 % (1.0-8.0); PLATELET COUNT 275 thou/uL (150-400); POLYS 70.3 % (36.0-66.0); RBC 4.78 mil/uL (4.20-5.00); RDW 15.3 % (10.5-14.5); WBC 10.6 thou/uL (4.0-11.0)
[2019-02-17 06:32] LABS: MAGNESIUM 1.3 mg/dL (1.8-2.4); POTASSIUM 3.3 mmol/L (3.5-5.1); TOTAL BILIRUBIN 0.5 mg/dL (<0.1-1.0); TOTAL PROTEIN 8.2 g/dL (6.4-8.2)
[2019-02-17 07:35] VITALS: BP 118/56
--- NOTE | 2019-02-17 13:40 | NUR ---
PT CARE ASSUMED AT 0700. A&Ox4. PT IS IRRITATED TODAY DUE TO INTERVIEWS WITH PLACEMENT AND HER URINE CONTAINER. PT HAS WET THE BED DUE TO CONTAINER OVERFLOW. PT REFUSES ENOXIPAREN AND NYSTATIN. PT. HAS A BLOATED FEELING DUE TO HERMIA PAIN. PT IN BARIATTRIC BED.
--- NOTE | 2019-02-17 14:14 | NUR ---
Following for d/c planning needs. Received telephone calls from: [facility]--declined [facility]--declined Called the following facilities from list provided by elvira: [facility], [facility]--declined [facility]--declined [facility]--declined [facility]ined [facility]--[facility]--faxed referral [facility]--declined [facility]--declined [facility]--declined [facility]faxed referral [facility]--declined [facility]--declined [facility]--declined [facility]--declined [facility]--declined [facility]declined [facility]--declined
[2019-02-17 15:47] VITALS: BP 123/65
--- NOTE | 2019-02-17 19:03 | NUR ---
1900 ASSUMED CARE OF PT AFTER BEDSIDE REPORT WITH SEVEN SIMON. EXTERNAL CATHETER IS INTACT AND DRAINING, CLIENT STATES NO CONCERNS AT THIS TIME.
[2019-02-17 20:07] VITALS: BP 122/48
[2019-02-18 04:12] VITALS: BP 117/60
[2019-02-18 09:35] LABS: MAGNESIUM 1.5 mg/dL (1.8-2.4); POTASSIUM 3.7 mmol/L (3.5-5.1)
[2019-02-18 09:55] VITALS: BP 116/59
--- NOTE | 2019-02-18 12:28 | NUR ---
PT CARE ASSUMED AT 0700. A&Ox4. PT RESETING IN ROOM AND NOT WANTING TO BE DISTURBED. PT. REFUSED ENOXIPAREN AND COLESEVELAM. WHEN ASKING WHAT THE PT GOAL WAS FOR TODAY SHE STATED THAT SHE "HAS NO GOAL EVER SHE JUST GIVES FUNNY ANSWERS BECAUSE WHEN YOU ARE LIKE THIS THERE IS NO REAL GOAL TO HAVE" PT ROOM KEPT DARK AND DOES NOT WANT TO BE DISTURBED. CALL LIGHT IN REACH. PT KEPT ON 2500ML FLUID RESTRICTION.
--- NOTE | 2019-02-18 13:11 | NUR ---
Received telephone call from Ericka at [facility]. They have reviewed referral and are willing to accept pt. Spoke again with pt. Pt said that her friend just bought a house and is moving into it with his 77 year old mother. Friend visited pt on Sunday, according to nursing. Also received report that friend is diabetic and has several amputations. Friend--Craig Contreras--has moved all of pt's belongings into his house and plans are for pt to move in with him after she goes to rehab. Pt is still insistent on going to [facility]. 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 Pt became tearful during discussion and said she does not want to have anyone contact Craig because she does not want him to be scared off. Told pt that [facility] has accepted pt. Pt said it was too far. Reminded pt that she told this REGISTERED DIETICIAN last week that she was willing to check with facilities [place] [facility]. Pt reluctant to accept placement at facility without knowing anything about it. Encouraged pt to call facility and speak with someone there. Explained in detail that pt will be discharged on Sunday. Her choices are 1) home with Craig; 2) [facility] or 3) [facility]. Pt said she would contact Craig and see if she would be able to move in with him sooner than expected. Will remain available to assist as needed.
[2019-02-18 17:08] VITALS: BP 110/64
--- NOTE | 2019-02-19 04:52 | NUR ---
ASSESSMENT COMPLETED. PT ALERT AND ORIENTED. DENIES PAIN. EXTERNAL URINE CATH WORKING FINE. PT FRUSTRATED AND TEARFUL ABOUT DISCHARGING TOMORROW. THERAPEUTIC EAR PROVIDED. NO FURTHER CONCERNS.
[2019-02-19] MEDS ORDERED: SPIRONOLACTONE100 M1 PO (09:02)
[2019-02-19] MEDS ORDERED: ACETAMINOPHEN325 M1 PO (09:02)
[2019-02-19] MEDS ORDERED: K-DUR 20 MEQ T20 MEQ PO (09:02)
[2019-02-19] MEDS ORDERED: DEMADEX20 MG PO (09:02)
[2019-02-19] MEDS ORDERED: MAGNESIUM400 MG PO (09:02)
[2019-02-19] MEDS ORDERED: METFORMIN HCL500 M3 PO (09:08)
--- NOTE | 2019-02-19 09:30 | NUR ---
Following for d/c planning needs. Called [facility] this morning and confirmed pick-up at 1100.
--- NOTE | 2019-02-19 12:00 | NUR ---
PT ASSESSED AT START OF SHIFT. EXPRESSED FEELINGS OF FEAR THAT NEW FACILITY WILL NOT TAKE GOOD CARE OF HER LIKE WE DID HERE AT THE HOSPITAL. HAD LARGE SOFT BM. SKIN INTACT. PT VERY AGILE AND ABLE TO PULL HERSELF FORWARD AND LAY BACK W/ LEGS UP IN THE AIR TO ACCOMADATE BATHING. EATING AND DRINKING WELL-DOES LIKE TO DRINK A LOT OF SODA SO NOW TRYING TO DRINK ICE TEA. DISCHARGING AT THIS TIME PER AMBULANCE TO FACILITY IN [facility].
[2019-02-20 00:06] LABS: GLYCOHEMOGLOBIN (HGB A1C) 6.4 % (4.8-5.6)
== END 2019-02-19 12:18 | DRG 640 ==
LOC: ER 16:17 → 4S 20:52 → EROBS 20:52 → 4W 20:52 → EROBS 20:52 → 4W 23:12 → 4S 01-31 05:55
PROVIDERS: Emergency Medicine; Hospitalist; Nurse Practitioner; Nurse Practitioner Family; ADMIT Internal Medicine
DX: E66.01 Morbid (severe) obesity due to excess calories (principal); R53.2 Functional quadriplegia; N39.0 Urinary tract infection, site not specified; E46 Unspecified protein-calorie malnutrition; Q89.8 Other specified congenital malformations; I89.0 Lymphedema, not elsewhere classified; E03.9 Hypothyroidism, unspecified; F32.9 Major depressive disorder, single episode, unspecified; L30.4 Erythema intertrigo; F41.9 Anxiety disorder, unspecified; K21.9 Gastro-esophageal reflux disease without esophagitis; E87.6 Hypokalemia; N18.2 Chronic kidney disease, stage 2 (mild); E83.42 Hypomagnesemia; Z68.45 Body mass index [BMI] 70 or greater, adult; Z74.01 Bed confinement status; Z88.2 Allergy status to sulfonamides; Z88.8 Allergy status to other drugs, medicaments and biological substances; Z91.02 Food additives allergy status
CPT/HCPCS: 10040; 10195

== ENCOUNTER 2020-09-08 14:44 | Emergency (ER) | payer OTHER ==
[~2020-09-08] VITALS: Ht 154.9 cm; Wt 317.5 kg
[~2020-09-08 14:44] MED LIST: ACETAMINOPHEN325 M1 PO; DEMADEX20 MG PO; K-DUR 20 MEQ T20 MEQ PO; LEVO-T100 MCG PO; MAGNESIUM400 MG PO; METFORMIN HCL500 M3 PO; POTASSIUM CHLO10 MEQ PO; SPIRONOLACTONE100 M1 PO; SPIRONOLACTONE25 M1 PO; VITAMIN B-125000 MCG PO; VITAMIN D250000 UNIT; WELCHOL 625 MG625 MG PO
[2020-09-08 16:09] LABS: HEMATOCRIT 37.1 % (37.0-47.0); MCH 28.6 pg (26.0-34.0); MCHC 32.3 g/dL (28.0-37.0); MCV 88.5 fL (80.0-100.0); PLATELET COUNT 307 thou/uL (150-400); RBC 4.19 mil/uL (4.20-5.00); RDW 15.1 % (10.5-14.5); WBC 9.9 thou/uL (4.0-11.0)
[2020-09-08 16:22] LABS: CALCIUM 9.5 mg/dL (8.5-10.1); CREATININE 1.4 mg/dL (0.6-1.0); POTASSIUM 3.8 mmol/L (3.5-5.1)
[2020-09-08 16:28] LABS: ALBUMIN 2.4 g/dL (3.4-5.0); TOTAL BILIRUBIN 0.3 mg/dL (0.2-1.0); TOTAL PROTEIN 7.8 g/dL (6.4-8.2)
[2020-09-08 18:44] LABS: ABSOLUTE NEUTROPHILS 7.1 thou/uL (1.4-8.2)
[2020-09-08 18:45] LABS: ANISOCYTOSIS 2+; HYPOCHROMASIA 2+
[2020-09-09 00:39] VITALS: BP 117/55
== END 2020-09-09 00:59 | disposition home or self-care (01) ==
LOC: ER 14:44
PROVIDERS: Student in an Organized Health Care Education/Training Program
DX: E66.01 Morbid (severe) obesity due to excess calories (principal); F32.9 Major depressive disorder, single episode, unspecified; E03.9 Hypothyroidism, unspecified; K21.9 Gastro-esophageal reflux disease without esophagitis; F41.9 Anxiety disorder, unspecified; Z79.899 Other long term (current) drug therapy; Z88.1 Allergy status to other antibiotic agents; Z91.02 Food additives allergy status